=== PATIENT | female | born 1980 | race Caucasian/White ===

== ENCOUNTER → 2016-12-01 | Outpatient (CLI) | payer BC ==
[~2016-12-01] MED LIST: ADV100INH INH; ALBU17IN INH
--- NOTE | 2016-12-01 16:20 | REP ---
Clinical: Pelvic pain. Technique: Transabdominal pelvic ultrasound followed by transvaginal examination for better evaluation of the endometrium and adnexa with color Doppler evaluation of the ovaries. Findings: Bladder is unremarkable and measures 12.0 x 5.7 x 8.1 cm. Retroverted bicornuate uterus measures 7.8 x 4.3 x 5.4 cm. The endometrial complex measures 5.1 mm (right) and 7.1 mm (left) thickness. No discrete uterine or endometrial abnormalities are appreciated. Subcentimeter Nabothian cysts. Bilateral ovaries are normal in appearance and vascularity without evidence for torsion. Right ovary measures 4.9 x 2.6 x 3.4 cm ; R I = 0.66. Left ovary measures 3.3 x 1.8 x 1.8 cm ; R I = 0.62. Trace pelvic free fluid is nonspecific. Impression: 1. Retroverted bicornuate uterus. 2. Trace pelvic free fluid. 3. Normal bilateral ovaries. Signed by Kehinde Wagoner MD 12/01/2016 04:12 P
== END ==
LOC: M SMT 14:59
PROVIDERS: ATTEND Physician Assistant
DX: R10.31 Right lower quadrant pain (principal)

== ENCOUNTER 2016-12-07 18:46 | Emergency (ER) | payer BC ==
[2016-12-07 20:33] LABS: BASO % 0.6 % (0.0-1.0); EOS # 0.2 K/mm3 (0.0-0.50); EOS % 2.6 % (0.0-3.0); LARGE UNSTAINED CELL # 0.1 K/mm3 (0.0-0.4); LARGE UNSTAINED CELL % 1.1 % (0.0-4.0); LYMPH # 1.3 K/mm3 (1.5-4.5); LYMPH % 16.6 % (24.0-44.0); MEAN CORPUSCULAR HEMOGLOBIN 30.4 pg (27.0-33.0); MEAN CORPUSCULAR VOLUME 89.6 fl (80.0-96.0); MONO # 0.5 K/mm3 (0.0-0.8); NEUTROPHILS # 5.5 K/mm3 (1.8-7.7); NEUTROPHILS % 73.2 % (36.0-66.0); PLATELET COUNT, AUTOMATED 258 k/mm3 (150-450); RED CELL DISTRIBUTION WIDTH 12.3 % (11.5-14.5); WHITE BLOOD COUNT 7.5 K/mm3 (4.0-10.0)
[2016-12-07 20:44] LABS: ALBUMIN 4.1 GM/DL (3.2-5.2); ALBUMIN/GLOBULIN RATIO 1.05 (1.00-1.93); ALKALINE PHOSPHATASE 58 U/L (45-117); ALT/SGPT 16 U/L (12-78); AMYLASE 50 U/L (25-115); ANION GAP 7 MEQ/L (8-16); AST/SGOT 11 U/L (15-37); BILIRUBIN,DIRECT 0.2 MG/DL (0.0-0.2); BILIRUBIN,TOTAL 0.6 MG/DL (0.2-1.0); BLOOD UREA NITROGEN 6 MG/DL (7-18); CALCIUM LEVEL 8.6 MG/DL (8.5-10.1); CARBON DIOXIDE LEVEL 30 MEQ/L (21-32); CHLORIDE LEVEL 105 MEQ/L (98-107); CREATININE FOR GFR 0.81 MG/DL (0.55-1.02); GLOMERULAR FILTRATION RATE > 60.0 (>60); GLUCOSE, FASTING 100 MG/DL (70-105); POTASSIUM SERUM 3.9 MEQ/L (3.5-5.1); SODIUM LEVEL 142 MEQ/L (136-145)
--- NOTE | 2016-12-07 21:50 | EDDOCDS ---
Physician Documentation [facility] Name: Kimber Chung Age: 36 yrs Sex: Female : 1980 Arrival Date: 12/07/2016 Time: 18:46 Bed PD Private MD: Sofie Olsen Disposition: 12/07/16 21:25 Discharged to Home/Self Care. Impression: Acute gastritis. - Condition is Stable. - Discharge Instructions: Gastritis, Adult. - Prescriptions for Carafate 1 gram Oral Tablet - take 1 tablet by ORAL route 4 times per day take on an empty stomach, beginning on waking and last dose at bedtime; 20 tablet. Prilosec 20 mg Oral Capsule, Delayed Release(E.C.) - take 1 capsule by ORAL route once daily; 14 capsule. ZOFRAN ODT 4 mg Oral - dissolve 1 tablet by ORAL route every 8 hours As needed do not chew, do not swallow whole; 10 tablet. - Medication Reconciliation, Local Pharmacy Hours form. - Follow up: Sofie Olsen MD; When: 1 week; Reason: Recheck today's complaints, Continuance of care. Follow up: Emergency Department; When: As needed; Reason: Fever > 102F, Worsening of conditions, signs of bleeding, severe pain. - Problem is new. - Symptoms have improved. Historical: - Allergies: Bactrim (Hives); Levaquin (passed out); - Home Meds: 1. DOK 100 mg oral cap 1 cap once daily - PMHx: Asthma; - PSHx: ; Cholecystectomy; - Social history: Smoking status: Patient states was never smoker of tobacco. No barriers to communication noted, The patient speaks fluent [place], Speaks appropriately for age. - Family history: Not pertinent. - : The pt / caregiver states he / she is not on anticoagulants. Home medication list is obtained from the patient. - Exposure Risk Screening:: None identified. 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 5 in. (165.10 cm) (R); Pain 5/10; 19:31 Resp 20; sls1 19:37 BP 141 / 82; cjh 21:05 BP 159 / 95; Pulse 119; Resp 16; Temp 99.5(O); Pulse Ox 100% on R/A; Pain 5/10; sew 21:49 BP 150 / 87; Pulse 101; Resp 18 S; Temp 98.8(O); Pulse Ox 99% on R/A; af2 18:48 Body Mass Index 32.78 (89.36 kg, 165.10 cm) gr2 MDM: 19:00 Vital Signs ordered. dt4 19:55 KUB Ordered. EDMS 19:55 Amylase Ordered. EDMS 19:55 Basic Metabolic Profile Ordered. EDMS 19:55 CBC with Diff Ordered. EDMS 19:55 Lipase Ordered. EDMS 19:55 Liver Profile Ordered. EDMS 19:56 UA Ordered. EDMS 19:56 NOTHING BY MOUTH+DIET ordered. EDMS 21:21 Basic Metabolic Profile Reviewed. ar2 21:21 CBC with Diff Reviewed. ar2 21:21 Liver Profile Reviewed. ar2 21:21 UA Reviewed. ar2 21:21 Amylase Reviewed. ar2 21:21 Lipase Reviewed. ar2 21:22 Urine Culture Ordered. EDMS 21:36 Financial registration complete. [facility] Signatures: Dispatcher [employer] Amie Elizabeth, RN Boston Robb PA-C PA-C ar2 Marie Lo RN RN sls1 Marti Mora PA-C PA-Evette dt4 Samantha Vela [facility] Enriqueta BaileyRN RN af2 MTDD
--- NOTE | 2016-12-07 21:50 | EDDOCDS ---
Nurse's Notes [facility] Name: Kimber Chung Age: 36 yrs Sex: Female : 1980 Arrival Date: 12/07/2016 Time: 18:46 Bed PD Private MD: Sofie Olsen Diagnosis: Acute gastritis Presentation: 12/07 18:51 Presenting complaint: Patient states: upper mid abd pain for 2 weeks. it moves all srm over. went to PMD and had U/S and it was normal. pt on stool softeners. pain not getting any better. feels like she has to urinate and defecate all the time. soft formed stool. decreased appetite. no abnormal vag bleeding. Risk factors: the patient reports no vaginal bleeding. Adult Sepsis Screening: The patient does not have new or worsening altered mentation. Patient's respiratory rate is less than 22. Systolic blood pressure is greater than 100. Patient has a qSOFA score of 0- Negative Sepsis Screen. Suicide/Homicide risk assessment- the patient denies having any suicidal and/or homicidal ideations and does not present with any other emotional, behavioral or mental health complaints. Status: Patient is not a special services director or dependent. Transition of care: patient was not received from another setting of care. 18:51 Acuity: SAROJ Level 3 srm 18:51 Method Of Arrival: Walkin/Carried/Asstd srm Triage Assessment: 18:55 General: Appears in no apparent distress, Behavior is appropriate for age, cooperative. srm Pain: Pain currently is 5 out of 10 on a pain scale. At worst was 9 out of 10 on a pain scale. HIV screening NA for this visit Offered previously. GI: Reports upper abd pain. 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 DOK 100 mg oral cap 1 cap once daily - PMHx: Asthma; - PSHx: ; Cholecystectomy; - Social history: Smoking status: Patient states was never smoker of tobacco. No barriers to communication noted, The patient speaks fluent Polish, Speaks appropriately for age. - Family history: Not pertinent. - : The pt / caregiver states he / she is not on anticoagulants. Home medication list is obtained from the patient. - Exposure Risk Screening:: None identified. Screenin:08 Screening information is obtained from the patient. Fall risk: No risks identified. af2 Assistance ADL's: requires no assistance with activities of daily living. Abuse/DV Screen: The patient / caregiver reports he/she is: not in a situation that causes fear, pain or injury. Nutritional screening: No deficits noted. Advance Directives: Currently, there is no health care proxy. home support is adequate. Assessment: 19:31 General: Appears in no apparent distress, Behavior is appropriate for age, cooperative, sls1 Pt reports right upper quadrant abdominal pain times two weeks, reports pain after eating, with decreased appetite, has been seen by pcp, had ultra sound and treated for constipation. Pt reports pain is continuing, mostly epigastric region, reports still feels like she has to have bowel movement but unable to go. Denies urinary symptoms. Reports felt like a "ball" near rectum.. Neurological: Level of Consciousness is awake, alert, Oriented to person, place, time. Respiratory: Airway is patent Respiratory effort is even, unlabored, Respiratory pattern is regular, symmetrical. GI: Abdomen is non- distended obese, Bowel sounds present X 4 quads. Abd is soft X 4 quads. Derm: No deficits noted. 21:08 General: Appears in no apparent distress, Behavior is appropriate for age, cooperative. af2 Neurological: Level of Consciousness is awake, alert, Oriented to person, place, time. Respiratory: Airway is patent Respiratory effort is even, unlabored, Respiratory pattern is regular, symmetrical. Derm: Skin is pink, warm & dry. Vital Signs: 18:48 BP 161 / 88; Pulse 115; Resp 10 S; Temp 99.3(O); Pulse Ox 100% on R/A; Weight 89.36 kg gr2 (R); Height 5 ft. 5 in. (165.10 cm) (R); Pain 5/10; 19:31 Resp 20; sls1 19:37 BP 141 / 82; cjh 21:05 BP 159 / 95; Pulse 119; Resp 16; Temp 99.5(O); Pulse Ox 100% on R/A; Pain 5/10; sew 21:49 BP 150 / 87; Pulse 101; Resp 18 S; Temp 98.8(O); Pulse Ox 99% on R/A; af2 18:48 Body Mass Index 32.78 (89.36 kg, 165.10 cm) gr2 Vitals: 18:48 Log In Time: December 07, 2016 at 18:48. gr2 ED Course: 18:47 Patient visited by Shon Chan. gr2 18:47 Sofie Olsen MD is Private Physician. gr2 18:47 Patient moved to Waiting gr2 18:48 Patient visited by Shon Chan. gr2 18:48 Patient moved to Pre RCE gr2 18:54 Triage Initiated srm 19:28 Patient moved to Triage 3 sls1 19:33 Patient visited by Marie Lo RN. sls1 19:38 Boston Corrigan PA-C is PHCP. ar2 19:38 Syed Lopez DO is Attending Physician. ar2 19:38 Patient visited by Boston Corrigan PA-C. ar2 20:07 Patient moved to TR2 sls1 20:09 Patient moved to Radiology indra 20:59 Patient moved to PD / sls1 21:05 Patient visited by Enriqueta Bailey RN. af2 21:06 Patient visited by Rochelle Jason. sew 21:08 The patient / caregiver is instructed regarding the plan of care and ED course. Patient af2 has correct armband on for positive identification. 21:09 Patient visited by Enriqueta Bailey RN. af2 21:25 Sofie Olsen MD is Referral Physician. ar2 21:28 Urine Culture Sent. sls1 21:49 No IV's were initiated during this patient's visit. No procedures done that require af2 assistance. Order Results: Lab Order: Amylase; SPEC'M 12/07/16 20:05 Test: AMYLASE; Value: 50; Range: 25-115; Units: U/L; Status: F Lab Order: Basic Metabolic Profile; SPEC'M 12/07/16 20:05 Test: GLUCOSE, FASTING; Value: 100; Range: 70-105; Units: MG/DL; Status: F Test: BLOOD UREA NITROGEN; Value: 6; Range: 7-18; Abnormal: Below low normal; Units: MG/DL; Status: F Test: CREATININE FOR GFR; Value: 0.81; Range: 0.55-1.02; Units: MG/DL; Status: F Test: GLOMERULAR FILTRATION RATE; Value: > 60.0; Range: >60; Status: F Test: SODIUM LEVEL; Value: 142; Range: 136-145; Units: MEQ/L; Status: F Test: POTASSIUM SERUM; Value: 3.9; Range: 3.5-5.1; Units: MEQ/L; Status: F Test: CHLORIDE LEVEL; Value: 105; Range: 98-107; Units: MEQ/L; Status: F Test: CARBON DIOXIDE LEVEL; Value: 30; Range: 21-32; Units: MEQ/L; Status: F Test: ANION GAP; Value: 7; Range: 8-16; Abnormal: Below low normal; Units: MEQ/L; Status: F Test: CALCIUM LEVEL; Value: 8.6; Range: 8.5-10.1; Units: MG/DL; Status: F Test Note: ; Units are mL/min/1.73 m2 Chronic Kidney Disease Staging per NKF: Stage I & II GFR >=60 Normal to Mildly Decreased Stage III GFR 30-59 Moderately Decreased Stage IV GFR 15-29 Severely Decreased Stage V GFR <15 Very Little GFR Left ESRD GFR <15 on BLUE CRABBER Lab Order: CBC with Diff; SPEC'M 12/07/16 20:05 Test: WHITE BLOOD COUNT; Value: 7.5; Range: 4.0-10.0; Units: K/mm3; Status: F Test: RED BLOOD COUNT; Value: 4.90; Range: 4.00-5.40; Units: M/mm3; Status: F Test: HEMOGLOBIN; Value: 14.9; Range: 12.0-16.0; Units: g/dl; Status: F Test: HEMATOCRIT; Value: 43.9; Range: 36.0-47.0; Units: %; Status: F Test: MEAN CORPUSCULAR VOLUME; Value: 89.6; Range: 80.0-96.0; Units: fl; Status: F Test: MEAN CORPUSCULAR HEMOGLOBIN; Value: 30.4; Range: 27.0-33.0; Units: pg; Status: F Test: MEAN CORPUSCULAR HGB CONC; Value: 34.0; Range: 32.0-36.5; Units: g/dl; Status: F Test: RED CELL DISTRIBUTION WIDTH; Value: 12.3; Range: 11.5-14.5; Units: %; Status: F Test: PLATELET COUNT, AUTOMATED; Value: 258; Range: 150-450; Units: k/mm3; Status: F Test: NEUTROPHILS %; Value: 73.2; Range: 36.0-66.0; Abnormal: Above high normal; Units: %; Status: F Test: LYMPH %; Value: 16.6; Range: 24.0-44.0; Abnormal: Below low normal; Units: %; Status: F Test: MONO %; Value: 6.0; Range: 0.0-5.0; Abnormal: Above high normal; Units: %; Status: F Test: EOS %; Value: 2.6; Range: 0.0-3.0; Units: %; Status: F Test: BASO %; Value: 0.6; Range: 0.0-1.0; Units: %; Status: F Test: LARGE UNSTAINED CELL %; Value: 1.1; Range: 0.0-4.0; Units: %; Status: F Test: NEUTROPHILS #; Value: 5.5; Range: 1.8-7.7; Units: K/mm3; Status: F Test: LYMPH #; Value: 1.3; Range: 1.5-4.5; Abnormal: Below low normal; Units: K/mm3; Status: F Test: MONO #; Value: 0.5; Range: 0.0-0.8; Units: K/mm3; Status: F Test: EOS #; Value: 0.2; Range: 0.0-0.50; Units: K/mm3; Status: F Test: BASO #; Value: 0.0; Range: 0.0-0.2; Units: K/mm3; Status: F Test: LARGE UNSTAINED CELL #; Value: 0.1; Range: 0.0-0.4; Units: K/mm3; Status: F Lab Order: Lipase; SPEC'M 12/07/16 20:05 Test: LIPASE; Value: 226; Range: 73-393; Units: U/L; Status: F Lab Order: Liver Profile; SPEC'M 12/07/16 20:05 Test: AST/SGOT; Value: 11; Range: 15-37; Abnormal: Below low normal; Units: U/L; Status: F Test: ALT/SGPT; Value: 16; Range: 12-78; Units: U/L; Status: F Test: ALKALINE PHOSPHATASE; Value: 58; Range: 45-117; Units: U/L; Status: F Test: BILIRUBIN,TOTAL; Value: 0.6; Range: 0.2-1.0; Units: MG/DL; Status: F Test: BILIRUBIN,DIRECT; Value: 0.2; Range: 0.0-0.2; Units: MG/DL; Status: F Test: TOTAL PROTEIN; Value: 8.0; Range: 6.4-8.2; Units: GM/DL; Status: F Test: ALBUMIN; Value: 4.1; Range: 3.2-5.2; Units: GM/DL; Status: F Test: ALBUMIN/GLOBULIN RATIO; Value: 1.05; Range: 1.00-1.93; Status: F Lab Order: UA; SPEC'M 12/07/16 20:05 Test: APPEARANCE, URINE; Value: CLEAR; Range: CLEAR; Status: F Test: COLOR, URINE; Value: STRAW; Range: YELLOW; Status: F Test: PH,URINE; Value: 7.0; Range: 5.0-9.0; Units: UNITS; Status: F Test: SPECIFIC GRAVITY URINE AUTO; Value: 1.004; Range: 1.002-1.035; Status: F Test: PROTEIN, URINE AUTO; Value: NEGATIVE; Range: NEGATIVE; Units: mg/dL; Status: F Test: GLUCOSE, URINE (UA) AUTO; Value: NEGATIVE; Range: NEGATIVE; Units: mg/dL; Status: F Test: KETONE, URINE AUTO; Value: NEGATIVE; Range: NEGATIVE; Units: mg/dL; Status: F Test: UROBILINOGEN, URINE AUTO; Value: 0.2; Range: 0.0-2.0; Units: mg/dL; Status: F Test: BILIRUBIN, URINE AUTO; Value: NEGATIVE; Range: NEGATIVE; Status: F Test: NITRITE, URINE AUTO; Value: NEGATIVE; Range: NEGATIVE; Status: F Test: LEUKOCYTE ESTERASE, URINE AUTO; Value: NEGATIVE; Range: NEGATIVE; Status: F Test: BLOOD, URINE BLOOD; Value: NEGATIVE; Range: NEGATIVE; Status: F Test: WBC, URINE AUTO; Value: 0; Range: 0-3; Units: /HPF; Status: F Test: RBC, URINE AUTO; Value: 1; Range: 0-3; Units: /HPF; Status: F Test: BACTERIA, URINE AUTO; Value: 1+; Range: NEGATIVE; Abnormal: Above high normal; Status: F Test: SQUAMOUS EPITHELIAL CELL UR AU; Value: 0; Range: 0-6; Units: /HPF; Status: F Test: HYALINE CAST, URINE AUTO; Value: 0; Range: 0-1; Units: /LPF; Status: F Outcome: 21:25 Discharge ordered by Provider. ar2 21:48 Discharge Assessment: Patient awake, alert and oriented x 3. No cognitive and/or af2 functional deficits noted. Patient verbalized understanding of disposition instructions. patient administered narcotics - no. The following High Risk Discharge criteria are identified: None. Discharged to home ambulatory. Condition: stable. Discharge instructions given to patient, Instructed on discharge instructions, follow up and referral plans. medication usage, Demonstrated understanding of instructions, medications, Pt was receptive of discharge instructions/ teaching. No special radiology studies were completed. Property :Personal belongings accompany Pt. 21:49 Patient left the ED. af2 Signatures: Amie Cooper, RN RN Cj Mckoy Aaron, PA-C PA-C ar2 Marie Lo RN RN sls1 Tana Sousa RN RN cjh Wallace, Sarah sew Raymond, Gainslee gr2 Enriqueta BaileyRN RN af2 MTDD
--- NOTE | 2016-12-09 22:50 | EDDOCDS ---
Nurse's Notes [facility] Name: Kimber Elam Age: 36 yrs Sex: Female : 1980 Arrival Date: 12/07/2016 Time: 18:46 Bed PD Private MD: Sofie Olsen Diagnosis: Acute gastritis Presentation: 12/07 18:51 Presenting complaint: Patient states: upper mid abd pain for 2 weeks. it moves all srm over. went to PMD and had U/S and it was normal. pt on stool softeners. pain not getting any better. feels like she has to urinate and defecate all the time. soft formed stool. decreased appetite. no abnormal vag bleeding. Risk factors: the patient reports no vaginal bleeding. Adult Sepsis Screening: The patient does not have new or worsening altered mentation. Patient's respiratory rate is less than 22. Systolic blood pressure is greater than 100. Patient has a qSOFA score of 0- Negative Sepsis Screen. Suicide/Homicide risk assessment- the patient denies having any suicidal and/or homicidal ideations and does not present with any other emotional, behavioral or mental health complaints. Status: Patient is not a food service technician or dependent. Transition of care: patient was not received from another setting of care. 18:51 Acuity: SAROJ Level 3 srm 18:51 Method Of Arrival: Walkin/Carried/Asstd srm Triage Assessment: 18:55 General: Appears in no apparent distress, Behavior is appropriate for age, cooperative. srm Pain: Pain currently is 5 out of 10 on a pain scale. At worst was 9 out of 10 on a pain scale. HIV screening NA for this visit Offered previously. GI: Reports upper abd pain. MANAGER ENT: 18:55 LMP 11/24/2016 srm Historical: - Allergies: Bactrim (Hives); Levaquin (passed out); - Home Meds: 1. DOK 100 mg oral cap 1 cap once daily - PMHx: Asthma; - PSHx: ; Cholecystectomy; - Social history: Smoking status: Patient states was never smoker of tobacco. No barriers to communication noted, The patient speaks fluent Ugandan, Speaks appropriately for age. - Family history: Not pertinent. - : The pt / caregiver states he / she is not on anticoagulants. Home medication list is obtained from the patient. - Exposure Risk Screening:: None identified. Screenin:08 Screening information is obtained from the patient. Fall risk: No risks identified. af2 Assistance ADL's: requires no assistance with activities of daily living. Abuse/DV Screen: The patient / caregiver reports he/she is: not in a situation that causes fear, pain or injury. Nutritional screening: No deficits noted. Advance Directives: Currently, there is no health care proxy. home support is adequate. Assessment: 19:31 General: Appears in no apparent distress, Behavior is appropriate for age, cooperative, sls1 Pt reports right upper quadrant abdominal pain times two weeks, reports pain after eating, with decreased appetite, has been seen by pcp, had ultra sound and treated for constipation. Pt reports pain is continuing, mostly epigastric region, reports still feels like she has to have bowel movement but unable to go. Denies urinary symptoms. Reports felt like a "ball" near rectum.. Neurological: Level of Consciousness is awake, alert, Oriented to person, place, time. Respiratory: Airway is patent Respiratory effort is even, unlabored, Respiratory pattern is regular, symmetrical. GI: Abdomen is non- distended obese, Bowel sounds present X 4 quads. Abd is soft X 4 quads. Derm: No deficits noted. 21:08 General: Appears in no apparent distress, Behavior is appropriate for age, cooperative. af2 Neurological: Level of Consciousness is awake, alert, Oriented to person, place, time. Respiratory: Airway is patent Respiratory effort is even, unlabored, Respiratory pattern is regular, symmetrical. Derm: Skin is pink, warm & dry. Vital Signs: 18:48 BP 161 / 88; Pulse 115; Resp 10 S; Temp 99.3(O); Pulse Ox 100% on R/A; Weight 89.36 kg gr2 (R); Height 5 ft. 5 in. (165.10 cm) (R); Pain 5/10; 19:31 Resp 20; sls1 19:37 BP 141 / 82; cjh 21:05 BP 159 / 95; Pulse 119; Resp 16; Temp 99.5(O); Pulse Ox 100% on R/A; Pain 5/10; sew 21:49 BP 150 / 87; Pulse 101; Resp 18 S; Temp 98.8(O); Pulse Ox 99% on R/A; af2 18:48 Body Mass Index 32.78 (89.36 kg, 165.10 cm) gr2 Vitals: 18:48 Log In Time: December 07, 2016 at 18:48. gr2 ED Course: 18:47 Patient visited by Shon Chan. gr2 18:47 Sofie Olsen MD is Private Physician. gr2 18:47 Patient moved to Waiting gr2 18:48 Patient visited by Shon Chan. gr2 18:48 Patient moved to Pre RCE gr2 18:54 Triage Initiated srm 19:28 Patient moved to Triage 3 sls1 19:33 Patient visited by Marie Lo, TESSIE. sls1 19:38 [place] Corrigan PA-C is PHCP. ar2 19:38 Syed Lopez DO is Attending Physician. ar2 19:38 Patient visited by [place] Corrigan PA-C. ar2 20:07 Patient moved to TR2 sls1 20:09 Patient moved to Radiology indra 20:59 Patient moved to PD sls1 21:05 Patient visited by Enriqueta Bailey RN. af2 21:06 Patient visited by Rochelle Jason. sew 21:08 The patient / caregiver is instructed regarding the plan of care and ED course. Patient af2 has correct armband on for positive identification. 21:09 Patient visited by Enriqueta Bailey RN. af2 21:25 Sofie Olsen MD is Referral Physician. ar2 21:28 Urine Culture Sent. sls1 21:49 No IV's were initiated during this patient's visit. No procedures done that require af2 assistance. 22:36 Patient name changed from Kimber\\S\\\\S\\Cris-Marialuisa\\S\\ to Kimber\\S\\M\\S\\Cris-Marialuisa. EDMS 22:37 [facility] Payment Agreement was scanned into [employer] and attached to record. [facility] 23:38 Patient name changed from Kimber\\S\\M\\S\\Cris-Marialuisa\\S\\ to Kimber\\S\\M\\S\\Cris Marialuisa. EDMS 12/08 11:55 T-Sheet-- Draft Copy was scanned into [employer] and attached to record. gb 11:55 Radiology Report was scanned into [employer] and attached to record. gb Order Results: Lab Order: Amylase; SPEC'M 12/07/16 20:05 Test: AMYLASE; Value: 50; Range: 25-115; Units: U/L; Status: F Lab Order: Basic Metabolic Profile; 12/07/16 20:05 Test: GLUCOSE, FASTING; Value: 100; Range: 70-105; Units: MG/DL; Status: F Test: BLOOD UREA NITROGEN; Value: 6; Range: 7-18; Abnormal: Below low normal; Units: MG/DL; Status: F Test: CREATININE FOR GFR; Value: 0.81; Range: 0.55-1.02; Units: MG/DL; Status: F Test: GLOMERULAR FILTRATION RATE; Value: > 60.0; Range: >60; Status: F Test: SODIUM LEVEL; Value: 142; Range: 136-145; Units: MEQ/L; Status: F Test: POTASSIUM SERUM; Value: 3.9; Range: 3.5-5.1; Units: MEQ/L; Status: F Test: CHLORIDE LEVEL; Value: 105; Range: 98-107; Units: MEQ/L; Status: F Test: CARBON DIOXIDE LEVEL; Value: 30; Range: 21-32; Units: MEQ/L; Status: F Test: ANION GAP; Value: 7; Range: 8-16; Abnormal: Below low normal; Units: MEQ/L; Status: F Test: CALCIUM LEVEL; Value: 8.6; Range: 8.5-10.1; Units: MG/DL; Status: F Test Note: ; Units are mL/min/1.73 m2 Chronic Kidney Disease Staging per NKF: Stage I & II GFR >=60 Normal to Mildly Decreased Stage III GFR 30-59 Moderately Decreased Stage IV GFR 15-29 Severely Decreased Stage V GFR <15 Very Little GFR Left ESRD GFR <15 on HVAC SERVICES PROFESSIONAL Lab Order: CBC with Diff; 12/07/16 20:05 Test: WHITE BLOOD COUNT; Value: 7.5; Range: 4.0-10.0; Units: K/mm3; Status: F Test: RED BLOOD COUNT; Value: 4.90; Range: 4.00-5.40; Units: M/mm3; Status: F Test: HEMOGLOBIN; Value: 14.9; Range: 12.0-16.0; Units: g/dl; Status: F Test: HEMATOCRIT; Value: 43.9; Range: 36.0-47.0; Units: %; Status: F Test: MEAN CORPUSCULAR VOLUME; Value: 89.6; Range: 80.0-96.0; Units: fl; Status: F Test: MEAN CORPUSCULAR HEMOGLOBIN; Value: 30.4; Range: 27.0-33.0; Units: pg; Status: F Test: MEAN CORPUSCULAR HGB CONC; Value: 34.0; Range: 32.0-36.5; Units: g/dl; Status: F Test: RED CELL DISTRIBUTION WIDTH; Value: 12.3; Range: 11.5-14.5; Units: %; Status: F Test: PLATELET COUNT, AUTOMATED; Value: 258; Range: 150-450; Units: k/mm3; Status: F Test: NEUTROPHILS %; Value: 73.2; Range: 36.0-66.0; Abnormal: Above high normal; Units: %; Status: F Test: LYMPH %; Value: 16.6; Range: 24.0-44.0; Abnormal: Below low normal; Units: %; Status: F Test: MONO %; Value: 6.0; Range: 0.0-5.0; Abnormal: Above high normal; Units: %; Status: F Test: EOS %; Value: 2.6; Range: 0.0-3.0; Units: %; Status: F Test: BASO %; Value: 0.6; Range: 0.0-1.0; Units: %; Status: F Test: LARGE UNSTAINED CELL %; Value: 1.1; Range: 0.0-4.0; Units: %; Status: F Test: NEUTROPHILS #; Value: 5.5; Range: 1.8-7.7; Units: K/mm3; Status: F Test: LYMPH #; Value: 1.3; Range: 1.5-4.5; Abnormal: Below low normal; Units: K/mm3; Status: F Test: MONO #; Value: 0.5; Range: 0.0-0.8; Units: K/mm3; Status: F Test: EOS #; Value: 0.2; Range: 0.0-0.50; Units: K/mm3; Status: F Test: BASO #; Value: 0.0; Range: 0.0-0.2; Units: K/mm3; Status: F Test: LARGE UNSTAINED CELL #; Value: 0.1; Range: 0.0-0.4; Units: K/mm3; Status: F Lab Order: Lipase; [facility] 12/07/16 20:05 Test: LIPASE; Value: 226; Range: 73-393; Units: U/L; Status: F Lab Order: Liver Profile; [facility] 12/07/16 20:05 Test: AST/SGOT; Value: 11; Range: 15-37; Abnormal: Below low normal; Units: U/L; Status: F Test: ALT/SGPT; Value: 16; Range: 12-78; Units: U/L; Status: F Test: ALKALINE PHOSPHATASE; Value: 58; Range: 45-117; Units: U/L; Status: F Test: BILIRUBIN,TOTAL; Value: 0.6; Range: 0.2-1.0; Units: MG/DL; Status: F Test: BILIRUBIN,DIRECT; Value: 0.2; Range: 0.0-0.2; Units: MG/DL; Status: F Test: TOTAL PROTEIN; Value: 8.0; Range: 6.4-8.2; Units: GM/DL; Status: F Test: ALBUMIN; Value: 4.1; Range: 3.2-5.2; Units: GM/DL; Status: F Test: ALBUMIN/GLOBULIN RATIO; Value: 1.05; Range: 1.00-1.93; Status: F Lab Order: UA; [facility] 12/07/16 20:05 Test: APPEARANCE, URINE; Value: CLEAR; Range: CLEAR; Status: F Test: COLOR, URINE; Value: STRAW; Range: YELLOW; Status: F Test: PH,URINE; Value: 7.0; Range: 5.0-9.0; Units: UNITS; Status: F Test: SPECIFIC GRAVITY URINE AUTO; Value: 1.004; Range: 1.002-1.035; Status: F Test: PROTEIN, URINE AUTO; Value: NEGATIVE; Range: NEGATIVE; Units: mg/dL; Status: F Test: GLUCOSE, URINE (UA) AUTO; Value: NEGATIVE; Range: NEGATIVE; Units: mg/dL; Status: F Test: KETONE, URINE AUTO; Value: NEGATIVE; Range: NEGATIVE; Units: mg/dL; Status: F Test: UROBILINOGEN, URINE AUTO; Value: 0.2; Range: 0.0-2.0; Units: mg/dL; Status: F Test: BILIRUBIN, URINE AUTO; Value: NEGATIVE; Range: NEGATIVE; Status: F Test: NITRITE, URINE AUTO; Value: NEGATIVE; Range: NEGATIVE; Status: F Test: LEUKOCYTE ESTERASE, URINE AUTO; Value: NEGATIVE; Range: NEGATIVE; Status: F Test: BLOOD, URINE BLOOD; Value: NEGATIVE; Range: NEGATIVE; Status: F Test: WBC, URINE AUTO; Value: 0; Range: 0-3; Units: /HPF; Status: F Test: RBC, URINE AUTO; Value: 1; Range: 0-3; Units: /HPF; Status: F Test: BACTERIA, URINE AUTO; Value: 1+; Range: NEGATIVE; Abnormal: Above high normal; Status: F Test: SQUAMOUS EPITHELIAL CELL UR AU; Value: 0; Range: 0-6; Units: /HPF; Status: F Test: HYALINE CAST, URINE AUTO; Value: 0; Range: 0-1; Units: /LPF; Status: F Lab Order: Urine Culture; SPEC'M 12/07/16 20:05 Test: URINE CULTURE; Value: <EXTERNAL COMMENT eCWMed> FULL REPORT IN LAB NOTES (eCW and Medent).; Status: F Test: URINE CULTURE; Value: URINE CULTURE RESULT SPECIMEN APPEARS CONTAMINATED; Status: F Outcome: 12/07 21:25 Discharge ordered by Provider. ar2 21:48 Discharge Assessment: Patient awake, alert and oriented x 3. No cognitive and/or af2 functional deficits noted. Patient verbalized understanding of disposition instructions. patient administered narcotics - no. The following High Risk Discharge criteria are identified: None. Discharged to home ambulatory. Condition: stable. Discharge instructions given to patient, Instructed on discharge instructions, follow up and referral plans. medication usage, Demonstrated understanding of instructions, medications, Pt was receptive of discharge instructions/ teaching. No special radiology studies were completed. Property :Personal belongings accompany Pt. 21:49 Patient left the ED. af2 Signatures: Dispatcher [employer] EDMS Amie Cooper RN RN srm Bartlett, Floyd fab Barnhardt, Gloria, Dylan Corrigan, [place], BARON PAJustoC ar2 Marie Lo, RN RN sls1 Tana Sousa,RN RN emeliah Eren, Shon [place]2 Samantha Vela Amber,RN RN af2 Chart Complete MTDD
--- NOTE | 2016-12-09 22:50 | EDDOCDS ---
Physician Documentation [facility] Name: Kimber Elam Age: 36 yrs Sex: Female : 1980 Arrival Date: 12/07/2016 Time: 18:46 Bed PD Private MD: Sofie Olsen Disposition: 12/07/16 21:25 Discharged to Home/Self Care. Impression: Acute gastritis. - Condition is Stable. - Discharge Instructions: Gastritis, Adult. - Prescriptions for Carafate 1 gram Oral Tablet - take 1 tablet by ORAL route 4 times per day take on an empty stomach, beginning on waking and last dose at bedtime; 20 tablet. Prilosec 20 mg Oral Capsule, Delayed Release(E.C.) - take 1 capsule by ORAL route once daily; 14 capsule. ZOFRAN ODT 4 mg Oral - dissolve 1 tablet by ORAL route every 8 hours As needed do not chew, do not swallow whole; 10 tablet. - Medication Reconciliation, Local Pharmacy Hours form. - Follow up: Sofie Olsen MD; When: 1 week; Reason: Recheck today's complaints, Continuance of care. Follow up: Emergency Department; When: As needed; Reason: Fever > 102F, Worsening of conditions, signs of bleeding, severe pain. - Problem is new. - Symptoms have improved. Historical: - Allergies: Bactrim (Hives); Levaquin (passed out); - Home Meds: 1. DOK 100 mg oral cap 1 cap once daily - PMHx: Asthma; - PSHx: ; Cholecystectomy; - Social history: Smoking status: Patient states was never smoker of tobacco. No barriers to communication noted, The patient speaks fluent Namibian, Speaks appropriately for age. - Family history: Not pertinent. - : The pt / caregiver states he / she is not on anticoagulants. Home medication list is obtained from the patient. - Exposure Risk Screening:: None identified. 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 5 in. (165.10 cm) (R); Pain 5/10; 19:31 Resp 20; sls1 19:37 BP 141 / 82; cjh 21:05 BP 159 / 95; Pulse 119; Resp 16; Temp 99.5(O); Pulse Ox 100% on R/A; Pain 5/10; sew 21:49 BP 150 / 87; Pulse 101; Resp 18 S; Temp 98.8(O); Pulse Ox 99% on R/A; af2 18:48 Body Mass Index 32.78 (89.36 kg, 165.10 cm) gr2 MDM: 19:00 Vital Signs ordered. dt4 19:55 KUB Ordered. EDMS 19:55 Amylase Ordered. EDMS 19:55 Basic Metabolic Profile Ordered. EDMS 19:55 CBC with Diff Ordered. EDMS 19:55 Lipase Ordered. EDMS 19:55 Liver Profile Ordered. EDMS 19:56 UA Ordered. EDMS 19:56 NOTHING BY MOUTH+DIET ordered. EDMS 21:21 Basic Metabolic Profile Reviewed. ar2 21:21 CBC with Diff Reviewed. ar2 21:21 Liver Profile Reviewed. ar2 21:21 UA Reviewed. ar2 21:21 Amylase Reviewed. ar2 21:21 Lipase Reviewed. ar2 21:22 Urine Culture Ordered. EDMS 21:36 Financial registration complete. [facility] :37 [facility] Payment Agreement was scanned into [employer] and attached to record. [facility] 12/08 11:55 T-Sheet-- Draft Copy was scanned into [employer] and attached to record. 11:55 Radiology Report was scanned into [employer] and attached to record. gb Signatures: Dispatcher [employer] EDMS Amie Cooper, TESSIE KURTZ [facility] Jazlyn Hernandez, Reg Reg [place] Corrigan, RAJIV-C PAJustoC ar2 Marie Lo RN RN sls1 Marti Mora PA-C PAOnofre [email or web address] Samantha Vela [facility] Enriqueta BaileyRN RN af2 The chart was reviewed and I authenticate all verbal orders and agree with the evaluation and treatment provided.Attachments: 12/07 22:37 [facility] Payment Agreement [facility] 12/08 11:55 T-Sheet-- Draft Copy Chart Complete MTDD
--- NOTE | 2016-12-09 22:50 | EDDOCDS ---
Physician Documentation [facility] Name: Kimber Elam Age: 36 yrs Sex: Female : 1980 Arrival Date: 12/07/2016 Time: 18:46 Bed PD Private MD: Sofie Olsen Disposition: 12/07/16 21:25 Discharged to Home/Self Care. Impression: Acute gastritis. - Condition is Stable. - Discharge Instructions: Gastritis, Adult. - Prescriptions for Carafate 1 gram Oral Tablet - take 1 tablet by ORAL route 4 times per day take on an empty stomach, beginning on waking and last dose at bedtime; 20 tablet. Prilosec 20 mg Oral Capsule, Delayed Release(E.C.) - take 1 capsule by ORAL route once daily; 14 capsule. ZOFRAN ODT 4 mg Oral - dissolve 1 tablet by ORAL route every 8 hours As needed do not chew, do not swallow whole; 10 tablet. - Medication Reconciliation, Local Pharmacy Hours form. - Follow up: Sofie Olsen MD; When: 1 week; Reason: Recheck today's complaints, Continuance of care. Follow up: Emergency Department; When: As needed; Reason: Fever > 102F, Worsening of conditions, signs of bleeding, severe pain. - Problem is new. - Symptoms have improved. Historical: - Allergies: Bactrim (Hives); Levaquin (passed out); - Home Meds: 1. DOK 100 mg oral cap 1 cap once daily - PMHx: Asthma; - PSHx: ; Cholecystectomy; - Social history: Smoking status: Patient states was never smoker of tobacco. No barriers to communication noted, The patient speaks fluent Guinean, Speaks appropriately for age. - Family history: Not pertinent. - : The pt / caregiver states he / she is not on anticoagulants. Home medication list is obtained from the patient. - Exposure Risk Screening:: None identified. 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 5 in. (165.10 cm) (R); Pain 5/10; 19:31 Resp 20; sls1 19:37 BP 141 / 82; cjh 21:05 BP 159 / 95; Pulse 119; Resp 16; Temp 99.5(O); Pulse Ox 100% on R/A; Pain 5/10; sew 21:49 BP 150 / 87; Pulse 101; Resp 18 S; Temp 98.8(O); Pulse Ox 99% on R/A; af2 18:48 Body Mass Index 32.78 (89.36 kg, 165.10 cm) gr2 MDM: 19:00 Vital Signs ordered. dt4 19:55 KUB Ordered. EDMS 19:55 Amylase Ordered. EDMS 19:55 Basic Metabolic Profile Ordered. EDMS 19:55 CBC with Diff Ordered. EDMS 19:55 Lipase Ordered. EDMS 19:55 Liver Profile Ordered. EDMS 19:56 UA Ordered. EDMS 19:56 NOTHING BY MOUTH+DIET ordered. EDMS 21:21 Basic Metabolic Profile Reviewed. ar2 21:21 CBC with Diff Reviewed. ar2 21:21 Liver Profile Reviewed. ar2 21:21 UA Reviewed. ar2 21:21 Amylase Reviewed. ar2 21:21 Lipase Reviewed. ar2 21:22 Urine Culture Ordered. EDMS 21:36 Financial registration complete. [facility] :37 [facility] Payment Agreement was scanned into [employer] and attached to record. [facility] 12/08 11:55 T-Sheet-- Draft Copy was scanned into [employer] and attached to record. 11:55 Radiology Report was scanned into [employer] and attached to record. gb Signatures: Dispatcher [employer] EDMS Amie Cooper, TESSIE KURTZ [facility] Jazlyn Hernandez, Reg Reg [place] Corrigan, RAJIV-C PAJustoC ar2 Marie oL RN RN sls1 Marti Mora PA-C PAOnofre [email or web address] Samantha Vela [facility] Enriqueta BaileyRN RN af2 The chart was reviewed and I authenticate all verbal orders and agree with the evaluation and treatment provided.Attachments: 12/07 22:37 [facility] Payment Agreement [facility] 12/08 11:55 T-Sheet-- Draft Copy Chart Complete MTDD
--- NOTE | 2016-12-11 13:44 | REP ---
Clinical: Upper abdominal pain. Technique: Two supine views of the abdomen and pelvis. Comparison: 09/16/2010. Findings: Bowel gas pattern is nonspecific. Evidence for prior cholecystectomy. Two stable phleboliths in the left mike pelvis again noted. Skeletal structures intact. Impression: Nonspecific abdominal radiographs. Signed by Kehinde Wagoner MD 12/11/2016 01:36 P
== END 2016-12-07 21:49 | disposition home or self-care (01) ==
LOC: M ED 18:46
DX: K29.00 Acute gastritis without bleeding (principal); J45.909 Unspecified asthma, uncomplicated; Z79.899 Other long term (current) drug therapy; Z88.1 Allergy status to other antibiotic agents

== ENCOUNTER → 2016-12-17 | Outpatient (REF) | payer BC ==
[2016-12-17 13:03] LABS: FREE T4 1.34 NG/DL (0.76-1.46)
== END ==
LOC: M SFHCADAM 12:05
PROVIDERS: ATTEND Family Medicine
DX: F41.9 Anxiety disorder, unspecified (principal)

== ENCOUNTER 2017-03-31 19:46 | Emergency (ER) | payer BC, SELFPAY ==
[~2017-03-31] VITALS: Ht 165.1 cm; Wt 97.5 kg
--- NOTE | 2017-03-31 21:30 | REPUSA ---
Clinical history: Pain, swelling. Findings: The right common femoral, superficial femoral, popliteal, and other deep venous structures compress normally and demonstrate normal color Doppler flow. Normal venous waveforms with augmentatio n are seen. Impression: No evidence of deep vein thrombosis in the right femoral popliteal venous system.
[2017-03-31] MEDS ORDERED: IBUP600T26 PO (21:39)
[2017-03-31 21:52] VITALS: BP 139/84
== END 2017-03-31 21:56 | disposition home or self-care (01) ==
LOC: M ED 20:25
DX: S86.111A Strain of other muscle(s) and tendon(s) of posterior muscle group at lower leg level, right leg, initial encounter (principal); X58.XXXA Exposure to other specified factors, initial encounter; Y92.89 Other specified places as the place of occurrence of the external cause; Y93.89 Activity, other specified; Y99.8 Other external cause status; E11.9 Type 2 diabetes mellitus without complications; J45.909 Unspecified asthma, uncomplicated; Z88.0 Allergy status to penicillin; Z88.1 Allergy status to other antibiotic agents; Z88.2 Allergy status to sulfonamides; Z88.8 Allergy status to other drugs, medicaments and biological substances; Z91.040 Latex allergy status; L23.1 Allergic contact dermatitis due to adhesives; J30.9 Allergic rhinitis, unspecified

== ENCOUNTER → 2017-06-26 | Outpatient (CLI) | payer BC ==
[~2017-06-26] MED LIST changes: +IBUP-1022 PO
--- NOTE | 2017-06-26 11:12 | REP ---
Clinical: Trauma. Technique: AP, lateral, bilateral oblique and sunrise views. Findings: The osseous structures and joint spaces are intact and normal. There is no evidence for acute fracture or dislocation. No joint effusion is appreciated. Surrounding soft tissues are unremarkable. No subcutaneous emphysema or radiodense foreign body. Impression: Normal left knee examination. No acute fracture or dislocation. Signed by Kehinde Wagoner MD 06/26/2017 08:39 A
== END ==
LOC: M ADAMS 08:15
PROVIDERS: ATTEND Physician Assistant Medical
DX: M25.562 Pain in left knee (principal)

== ENCOUNTER 2017-09-24 23:57 | Emergency (ER) | payer BC ==
[~2017-09-24] VITALS: Ht 165.1 cm; Wt 104.5 kg
[2017-09-24 23:58] VITALS: BP 142/85
[2017-09-25] MEDS ORDERED: MACR100C43 PO (01:20)
[2017-09-25] MEDS ORDERED: NITROFURANTOIN (MACROBID) 100 MG CAP PO ONE (01:30)
[2017-09-25] MEDS ORDERED: PHENAZOPYRIDINE 100 MG TAB PO ONE (01:30)
== END 2017-09-25 01:34 | disposition home or self-care (01) ==
LOC: M ED 23:57
DX: N30.90 Cystitis, unspecified without hematuria (principal); E11.9 Type 2 diabetes mellitus without complications; Z88.1 Allergy status to other antibiotic agents; Z88.2 Allergy status to sulfonamides; J30.89 Other allergic rhinitis

== ENCOUNTER → 2017-12-08 | Outpatient (REF) | payer BC ==
[2017-12-08 15:00] LABS: HEMATOCRIT 46.5 % (36.0-47.0); HEMOGLOBIN 15.4 g/dl (12.0-16.0); MEAN CORPUSCULAR HGB CONC 33.1 g/dl (32.0-36.5); MEAN CORPUSCULAR VOLUME 90.5 fl (80.0-96.0); PLATELET COUNT, AUTOMATED 351 10^3/uL (150-450); RED BLOOD COUNT 5.14 10^6/uL (4.00-5.40); RED CELL DISTRIBUTION WIDTH 12.9 % (11.5-14.5); WHITE BLOOD COUNT 9.3 10^3/uL (4.0-10.0)
[2017-12-08 16:43] LABS: CHLAMYDIA DNA AMPLIFICATION NEGATIVE (NEGATIVE); GC DNA AMPLIFICATION NEGATIVE (NEGATIVE)
[2017-12-08 21:48] LABS: HCG, SERUM QUANTITATIVE 2834 MIU/ML
[2017-12-09 10:09] LABS: RUBELLA IgG QUALITATIVE IMMUNE (IMMUNE)
[2017-12-09 10:13] LABS: HBsAg Prenatal NEGATIVE (NEGATIVE)
[2017-12-09 10:38] LABS: HEPATITIS C VIRUS ABY INDEX 0.1 INDEX (<0.8)
[2017-12-09 10:39] LABS: HIV 1&2 SCREEN CENTAUR NEGATIVE (NEGATIVE)
== END ==
LOC: M LAB REF 13:05
DX: O36.80X0 Pregnancy with inconclusive fetal viability, not applicable or unspecified (principal)
CPT/HCPCS: 86762

== ENCOUNTER → 2017-12-17 | Outpatient (REF) | payer BC ==
[2017-12-17 18:15] LABS: HCG, SERUM QUANTITATIVE 14378 MIU/ML
== END ==
LOC: M LAB REF 17:02
DX: O36.80X0 Pregnancy with inconclusive fetal viability, not applicable or unspecified (principal); Z3A.00 Weeks of gestation of pregnancy not specified
CPT/HCPCS: 84702

== ENCOUNTER → 2017-12-25 | Outpatient (REF) | payer BC ==
[2017-12-25 15:06] LABS: HCG, SERUM QUANTITATIVE 24524 MIU/ML
== END ==
LOC: M LAB REF 14:21
DX: O36.80X0 Pregnancy with inconclusive fetal viability, not applicable or unspecified (principal); Z3A.00 Weeks of gestation of pregnancy not specified
CPT/HCPCS: 84702

== ENCOUNTER 2018-01-06 08:46 | Day surgery (SDC) | payer BC ==
[2018-01-06] MEDS ORDERED: LR 1,000 ML IV ×2 (09:00→11:30)
[2018-01-06 09:10] LABS: HEMOGLOBIN 14.4 g/dl (12.0-16.0); MEAN CORPUSCULAR HEMOGLOBIN 29.9 pg (27.0-33.0); MEAN CORPUSCULAR HGB CONC 33.5 g/dl (32.0-36.5); MEAN CORPUSCULAR VOLUME 89.4 fl (80.0-96.0); PLATELET COUNT, AUTOMATED 274 10^3/uL (150-450); RED BLOOD COUNT 4.81 10^6/uL (4.00-5.40); RED CELL DISTRIBUTION WIDTH 12.5 % (11.5-14.5); WHITE BLOOD COUNT 8.4 10^3/uL (4.0-10.0)
[2018-01-06] MEDS ORDERED: fentaNYL 250 MCG/5 ML INJECTION (J3010) As Ordered (09:59)
[2018-01-06] MEDS ORDERED: MIDAZOLAM INJ 2 MG/2 ML VIAL (J2250) As Ordered (10:00)
[2018-01-06] MEDS: LIDOCAINE 1% MDV INJ 50 ML VIAL As Ordered (10:14)
[2018-01-06] MEDS: LIDOCAINE 1% MDV 20ML VIAL As Ordered (10:15)
[2018-01-06] MEDS ORDERED: PROPOFOL 200 MG/20 ML VIAL As Ordered (10:21)
[2018-01-06 10:26] LABS: TYPE AND SCREEN 1 1
[2018-01-06] MEDS: ACETAMINOPHEN 650 MG SUPP As Ordered (10:37)
[2018-01-06] MEDS: LIDOCAINE W/EPINEPHRINE 1% 20ML VIAL As Ordered (10:39)
[2018-01-06] MEDS ORDERED: PERCOCET 5MG/325MG TAB PO (11:30)
[2018-01-06] MEDS ORDERED: ONDANSETRON 4MG/2ML VIAL (J2405) IV (11:30)
[2018-01-06] MEDS ORDERED: KETOROLAC 30 MG/ML VIAL (J1885) IV (11:30)
[2018-01-06] MEDS ORDERED: fentaNYL 100 MCG/2 ML INJECTION (J3010) IV (11:30)
== END 2018-01-06 12:21 | disposition home or self-care (01) ==
LOC: M SDC 08:46
PROVIDERS: Pediatrics
DX: O02.1 Missed abortion (principal); E66.9 Obesity, unspecified; J45.909 Unspecified asthma, uncomplicated
CPT/HCPCS: 59820

== ENCOUNTER 2018-01-08 22:25 | Observation (INO) | payer BC ==
[2018-01-09 01:52] LABS: APPEARANCE, URINE CLEAR (CLEAR); BACTERIA, URINE AUTO 1+ (NEGATIVE); BILIRUBIN, URINE AUTO NEGATIVE (NEGATIVE); BLOOD, URINE BLOOD 3+ (NEGATIVE); COLOR, URINE YELLOW (YELLOW); GLUCOSE, URINE (UA) AUTO NEGATIVE (NEGATIVE); KETONE, URINE AUTO NEGATIVE (NEGATIVE); LEUKOCYTE ESTERASE, URINE AUTO 1+ (NEGATIVE); MUCUS, URINE SMALL (NEGATIVE); NITRITE, URINE AUTO NEGATIVE (NEGATIVE); PROTEIN, URINE AUTO NEGATIVE (NEGATIVE); RBC, URINE AUTO 74 /HPF (0-3); SQUAMOUS EPITHELIAL CELL UR AU 2 /HPF (0-6); UROBILINOGEN, URINE AUTO 0.2 mg/dL (0.0-2.0); WBC, URINE AUTO 11 /HPF (0-3)
[2018-01-09 01:58] LABS: ANION GAP 7 MEQ/L (8-16); BLOOD UREA NITROGEN 5 MG/DL (7-18); CALCIUM LEVEL 8.9 MG/DL (8.5-10.1); CARBON DIOXIDE LEVEL 24 MEQ/L (21-32); CHLORIDE LEVEL 113 MEQ/L (98-107); GLOMERULAR FILTRATION RATE > 60.0 (>60); GLUCOSE, FASTING 89 MG/DL (70-100); POTASSIUM SERUM 4.4 MEQ/L (3.5-5.1); SODIUM LEVEL 144 MEQ/L (136-145)
[2018-01-09 02:06] LABS: BASO % 0.2 % (0.0-1.0); EOS # 0.3 10^3/uL (0.0-0.50); EOS % 2.4 % (0.0-3.0); HEMATOCRIT 38.8 % (36.0-47.0); HEMOGLOBIN 12.9 g/dl (12.0-16.0); IMMATURE GRANULOCYTE % 0.2 % (0-3.0); LYMPH # 1.7 10^3/uL (1.5-4.5); LYMPH % 13.6 % (24.0-44.0); MEAN CORPUSCULAR HEMOGLOBIN 30.2 pg (27.0-33.0); MEAN CORPUSCULAR HGB CONC 33.2 g/dl (32.0-36.5); MEAN CORPUSCULAR VOLUME 90.9 fl (80.0-96.0); MONO # 0.8 10^3/uL (0.0-0.8); MONO % 6.4 % (0.0-5.0); NEUTROPHILS # 9.6 10^3/uL (1.8-7.7); NEUTROPHILS % 77.2 % (36.0-66.0); PLATELET COUNT, AUTOMATED 239 10^3/uL (150-450); RED BLOOD COUNT 4.27 10^6/uL (4.00-5.40); RED CELL DISTRIBUTION WIDTH 12.5 % (11.5-14.5); WHITE BLOOD COUNT 12.4 10^3/uL (4.0-10.0)
[2018-01-09] MEDS: KETOROLAC 30 MG/ML VIAL (J1885) IV ×2 (02:44)
[2018-01-09] MEDS ORDERED: ISOVUE-370 76% 100ML VIAL (Q9967) As Ordered ×2 (02:45)
[2018-01-09] MEDS: LR 1,000 ML IV ×2 (06:13)
[2018-01-09] MEDS: METHYLERGONOVINE MALEATE 0.2 MG/ML VIAL (J2210) IM ×4 (11:43→15:30)
== END 2018-01-09 15:40 | disposition home or self-care (01) ==
LOC: M ED 22:25 → M ED INP 01-09 05:35 → M OBS 01-09 05:35 → M ED INP 01-09 05:00 → M OBS 01-09 05:35
DX: O02.1 Missed abortion (principal); J45.909 Unspecified asthma, uncomplicated; N97.9 Female infertility, unspecified; Q51.3 Bicornate uterus
CPT/HCPCS: Q9967

== ENCOUNTER → 2018-03-05 | Outpatient (REF) | payer BC ==
[2018-03-05 18:59] LABS: BASO % 0.5 % (0.0-1.0); EOS # 0.5 10^3/uL (0.0-0.50); EOS % 6.6 % (0.0-3.0); HEMATOCRIT 43.1 % (36.0-47.0); IMMATURE GRANULOCYTE % 0.3 % (0-3.0); LYMPH # 1.8 10^3/uL (1.5-4.5); LYMPH % 24.7 % (24.0-44.0); MEAN CORPUSCULAR HEMOGLOBIN 29.7 pg (27.0-33.0); MEAN CORPUSCULAR HGB CONC 32.5 g/dl (32.0-36.5); MEAN CORPUSCULAR VOLUME 91.3 fl (80.0-96.0); MONO # 0.6 10^3/uL (0.0-0.8); NEUTROPHILS # 4.4 10^3/uL (1.8-7.7); NEUTROPHILS % 59.9 % (36.0-66.0); PLATELET COUNT, AUTOMATED 322 10^3/uL (150-450); RED BLOOD COUNT 4.72 10^6/uL (4.00-5.40); RED CELL DISTRIBUTION WIDTH 12.5 % (11.5-14.5); WHITE BLOOD COUNT 7.3 10^3/uL (4.0-10.0)
[2018-03-05 19:05] LABS: APPEARANCE, URINE CLEAR (CLEAR); BACTERIA, URINE AUTO NEGATIVE (NEGATIVE); BILIRUBIN, URINE AUTO NEGATIVE (NEGATIVE); BLOOD, URINE BLOOD 1+ (NEGATIVE); COLOR, URINE YELLOW (YELLOW); GLUCOSE, URINE (UA) AUTO NEGATIVE (NEGATIVE); KETONE, URINE AUTO NEGATIVE (NEGATIVE); LEUKOCYTE ESTERASE, URINE AUTO NEGATIVE (NEGATIVE); MUCUS, URINE SMALL (NEGATIVE); NITRITE, URINE AUTO NEGATIVE (NEGATIVE); PROTEIN, URINE AUTO NEGATIVE (NEGATIVE); RBC, URINE AUTO 0 /HPF (0-3); SPECIFIC GRAVITY URINE AUTO 1.008 (1.002-1.035); SQUAMOUS EPITHELIAL CELL UR AU 1 /HPF (0-6); UROBILINOGEN, URINE AUTO 0.2 mg/dL (0.0-2.0); WBC, URINE AUTO 1 /HPF (0-3)
[2018-03-05 19:14] LABS: ALBUMIN 3.8 GM/DL (3.2-5.2); ALBUMIN/GLOBULIN RATIO 0.97 (1.00-1.93); ALKALINE PHOSPHATASE 60 U/L (45-117); ALT/SGPT 22 U/L (12-78); ANION GAP 6 MEQ/L (8-16); AST/SGOT 12 U/L (7-37); BILIRUBIN,TOTAL 0.3 MG/DL (0.2-1.0); BLOOD UREA NITROGEN 8 MG/DL (7-18); CALCIUM LEVEL 8.5 MG/DL (8.5-10.1); CARBON DIOXIDE LEVEL 26 MEQ/L (21-32); CHLORIDE LEVEL 110 MEQ/L (98-107); CREATININE FOR GFR 0.86 MG/DL (0.55-1.30); GLOMERULAR FILTRATION RATE > 60.0 (>60); GLUCOSE, FASTING 96 MG/DL (70-100); POTASSIUM SERUM 4.2 MEQ/L (3.5-5.1); SODIUM LEVEL 142 MEQ/L (136-145); TOTAL PROTEIN 7.7 GM/DL (6.4-8.2)
== END ==
LOC: M SFHCADAM 18:29
DX: R10.31 Right lower quadrant pain (principal)
CPT/HCPCS: 80053

== ENCOUNTER → 2018-05-04 | Outpatient (REF) | payer BC ==
[2018-05-04 22:24] LABS: APPEARANCE, URINE HAZY (CLEAR); BACTERIA, URINE AUTO NEGATIVE (NEGATIVE); BILIRUBIN, URINE AUTO NEGATIVE (NEGATIVE); BLOOD, URINE BLOOD NEGATIVE (NEGATIVE); COLOR, URINE YELLOW (YELLOW); GLUCOSE, URINE (UA) AUTO NEGATIVE (NEGATIVE); KETONE, URINE AUTO NEGATIVE (NEGATIVE); LEUKOCYTE ESTERASE, URINE AUTO NEGATIVE (NEGATIVE); MUCUS, URINE SMALL (NEGATIVE); NITRITE, URINE AUTO NEGATIVE (NEGATIVE); PROTEIN, URINE AUTO NEGATIVE (NEGATIVE); RBC, URINE AUTO 2 /HPF (0-3); SQUAMOUS EPITHELIAL CELL UR AU 6 /HPF (0-6); UROBILINOGEN, URINE AUTO 0.2 mg/dL (0.0-2.0); WBC, URINE AUTO 9 /HPF (0-3)
== END ==
LOC: M LAB REF 10:08
DX: N39.0 Urinary tract infection, site not specified (principal)
CPT/HCPCS: 81001

== ENCOUNTER → 2018-07-06 | Outpatient (REF) | payer BC ==
[2018-07-06 20:17] LABS: HEMATOCRIT 43.3 % (36.0-47.0); HEMOGLOBIN 13.9 g/dl (12.0-15.5); MEAN CORPUSCULAR HEMOGLOBIN 29.8 pg (27.0-33.0); MEAN CORPUSCULAR HGB CONC 32.1 g/dl (32.0-36.5); MEAN CORPUSCULAR VOLUME 92.7 fl (80.0-96.0); PLATELET COUNT, AUTOMATED 299 10^3/uL (150-450); RED BLOOD COUNT 4.67 10^6/uL (4.00-5.40); WHITE BLOOD COUNT 8.7 10^3/uL (4.0-10.0)
[2018-07-06 21:58] LABS: HCG, SERUM QUANTITATIVE 2828 MIU/ML
[2018-07-07 10:11] LABS: RUBELLA IgG QUALITATIVE IMMUNE (IMMUNE)
[2018-07-07 10:26] LABS: HBsAg Prenatal NEGATIVE (NEGATIVE)
[2018-07-07 10:41] LABS: HIV 1&2 SCREEN CENTAUR NEGATIVE (NEGATIVE)
[2018-07-07 10:41] LABS: HEPATITIS C VIRUS ABY INDEX 0.2 INDEX (<0.8)
== END ==
LOC: M LAB REF 17:18
DX: O36.80X0 Pregnancy with inconclusive fetal viability, not applicable or unspecified (principal)
CPT/HCPCS: 86762

== ENCOUNTER 2018-07-08 19:28 | Emergency (ER) | payer BC ==
[2018-07-08 20:40] LABS: BASO % 0.4 % (0.0-1.0); EOS # 0.4 10^3/uL (0.0-0.50); EOS % 3.5 % (0.0-3.0); HEMOGLOBIN 14.5 g/dl (12.0-15.5); IMMATURE GRANULOCYTE % 0.4 % (0-3.0); LYMPH # 2.3 10^3/uL (1.5-4.5); LYMPH % 20.5 % (24.0-44.0); MEAN CORPUSCULAR HEMOGLOBIN 29.9 pg (27.0-33.0); MEAN CORPUSCULAR VOLUME 90.7 fl (80.0-96.0); MONO # 0.7 10^3/uL (0.0-0.8); MONO % 6.6 % (0.0-5.0); NEUTROPHILS # 7.8 10^3/uL (1.8-7.7); NEUTROPHILS % 68.6 % (36.0-66.0); PLATELET COUNT, AUTOMATED 293 10^3/uL (150-450); RED BLOOD COUNT 4.85 10^6/uL (4.00-5.40); RED CELL DISTRIBUTION WIDTH 12.7 % (11.5-14.5); WHITE BLOOD COUNT 11.3 10^3/uL (4.0-10.0)
[2018-07-08] MEDS: RHOGAM 300 MCG (1500 IU) INJ (J2790) IM (22:45)
[2018-07-08] MEDS: ACETAMINOPHEN 325 MG TAB PO (23:00)
[2018-07-08 23:09] LABS: AB SCREEN (INDIRECT COOMBS)VIS 1 1
[2018-07-08 23:40] LABS: HCG, SERUM QUANTITATIVE 2314 MIU/ML
== END 2018-07-09 00:34 | disposition home or self-care (01) ==
LOC: M ED 07-09 00:34
DX: O20.0 Threatened abortion (principal); O10.911 Unspecified pre-existing hypertension complicating pregnancy, first trimester; O99.511 Diseases of the respiratory system complicating pregnancy, first trimester; J45.909 Unspecified asthma, uncomplicated; O34.00 Maternal care for unspecified congenital malformation of uterus, unspecified trimester; Z3A.01 Less than 8 weeks gestation of pregnancy; Z88.8 Allergy status to other drugs, medicaments and biological substances; Z88.2 Allergy status to sulfonamides; Z91.048 Other nonmedicinal substance allergy status
CPT/HCPCS: 76801

== ENCOUNTER → 2018-07-08 | Outpatient (REF) | payer BC ==
[2018-07-08 19:13] LABS: HCG, SERUM QUANTITATIVE 2607 MIU/ML
== END ==
LOC: M LAB REF 16:31
DX: O36.80X0 Pregnancy with inconclusive fetal viability, not applicable or unspecified (principal)
CPT/HCPCS: 84702

== ENCOUNTER → 2018-07-11 | Outpatient (CLI) | payer BC ==
[2018-07-11 17:44] LABS: HCG, SERUM QUANTITATIVE 248 MIU/ML
== END ==
LOC: M ADAMS 13:31
DX: O20.0 Threatened abortion (principal); Z3A.00 Weeks of gestation of pregnancy not specified
CPT/HCPCS: 84702

== ENCOUNTER → 2018-07-13 | Outpatient (REF) | payer BC ==
[2018-07-13 18:24] LABS: HCG, SERUM QUANTITATIVE 84 MIU/ML
== END ==
LOC: M LAB REF 17:35
DX: O20.0 Threatened abortion (principal)

== ENCOUNTER → 2018-07-19 | Outpatient (REF) | payer BC ==
[2018-07-19 14:17] LABS: HCG, SERUM QUANTITATIVE 7 MIU/ML
== END ==
LOC: M LAB REF 13:27
DX: O20.0 Threatened abortion (principal)
CPT/HCPCS: 84702

== ENCOUNTER → 2018-07-25 | Outpatient (CLI) | payer BC | LOC: M LRY 17:18 | DX: R10.13 Epigastric pain (principal); Z90.49 Acquired absence of other specified parts of digestive tract | CPT/HCPCS: 74021 ==

== ENCOUNTER → 2018-07-25 | Outpatient (REF) | payer BC | LOC: M SFHCLERA 18:06 | DX: K29.70 Gastritis, unspecified, without bleeding (principal) ==

== ENCOUNTER → 2018-07-26 | Outpatient (REF) | payer BC ==
[2018-07-26 14:35] LABS: HCG, SERUM QUANTITATIVE < 1.0 MIU/ML
== END ==
LOC: M LAB REF 13:23
DX: O20.0 Threatened abortion (principal)
CPT/HCPCS: 84702

== ENCOUNTER → 2018-07-27 | Outpatient (REF) | payer BC ==
[2018-07-30 00:24] LABS: H PYLORI STOOL ANTIGEN Negative (Negative)
== END ==
LOC: M LAB REF 19:48
DX: K29.70 Gastritis, unspecified, without bleeding (principal)
CPT/HCPCS: 87338

== ENCOUNTER 2018-08-16 18:40 | Emergency (ER) | payer BC ==
[2018-08-16 20:06] LABS: BASO % 0.4 % (0.0-1.0); EOS # 0.5 10^3/uL (0.0-0.50); EOS % 4.9 % (0.0-3.0); HEMATOCRIT 43.2 % (36.0-47.0); HEMOGLOBIN 14.5 g/dl (12.0-15.5); IMMATURE GRANULOCYTE % 0.3 % (0-3.0); LYMPH # 1.9 10^3/uL (1.5-4.5); LYMPH % 18.3 % (24.0-44.0); MEAN CORPUSCULAR HEMOGLOBIN 29.8 pg (27.0-33.0); MEAN CORPUSCULAR HGB CONC 33.6 g/dl (32.0-36.5); MEAN CORPUSCULAR VOLUME 88.9 fl (80.0-96.0); MONO # 0.6 10^3/uL (0.0-0.8); MONO % 5.5 % (0.0-5.0); NEUTROPHILS # 7.2 10^3/uL (1.8-7.7); NEUTROPHILS % 70.6 % (36.0-66.0); PLATELET COUNT, AUTOMATED 299 10^3/uL (150-450); RED BLOOD COUNT 4.86 10^6/uL (4.00-5.40); RED CELL DISTRIBUTION WIDTH 12.3 % (11.5-14.5); WHITE BLOOD COUNT 10.2 10^3/uL (4.0-10.0)
[2018-08-16 20:28] LABS: ALBUMIN 3.6 GM/DL (3.2-5.2); ALBUMIN/GLOBULIN RATIO 0.88 (1.00-1.93); ALKALINE PHOSPHATASE 70 U/L (45-117); ALT/SGPT 16 U/L (12-78); ANION GAP 5 MEQ/L (8-16); AST/SGOT 13 U/L (7-37); BILIRUBIN,DIRECT < 0.1 MG/DL (0.0-0.2); BILIRUBIN,TOTAL 0.4 MG/DL (0.2-1.0); BLOOD UREA NITROGEN 7 MG/DL (7-18); CALCIUM LEVEL 8.9 MG/DL (8.5-10.1); CARBON DIOXIDE LEVEL 29 MEQ/L (21-32); CHLORIDE LEVEL 106 MEQ/L (98-107); GLOMERULAR FILTRATION RATE > 60.0 (>60); GLUCOSE, FASTING 104 MG/DL (70-100); LIPASE 167 U/L (73-393); POTASSIUM SERUM 3.9 MEQ/L (3.5-5.1); SODIUM LEVEL 140 MEQ/L (136-145); TOTAL PROTEIN 7.7 GM/DL (6.4-8.2)
[2018-08-16 20:50] LABS: KETONE, URINE AUTO RFX NEGATIVE (NEGATIVE); LEUKOCYTE ESTERASE UR AUTO RFX NEGATIVE (NEGATIVE); MUCUS, URINE RFX SMALL (NEGATIVE); NITRITE, URINE AUTO RFX NEGATIVE (NEGATIVE); RBC, URINE AUTO RFX 1 /HPF (0-3); SPECIFIC GRAVITY UR AUTO RFX 1.014 (1.002-1.035); SQUAM EPITHELIAL CELL UR AURFX 2 /HPF (0-6); WBC, URINE AUTO RFX 1 /HPF (0-3)
[2018-08-16 21:35] LABS: HCG, SERUM QUANTITATIVE < 1.0 MIU/ML
[2018-08-16] MEDS: NORCO, ANEXSIA 5/325MG TABLET (HYDROcodone/ACETAMINOPHEN) PO (22:20)
== END 2018-08-16 23:23 | disposition home or self-care (01) ==
LOC: M ED 18:40
DX: R10.31 Right lower quadrant pain (principal); Q51.3 Bicornate uterus; Z79.899 Other long term (current) drug therapy; J30.2 Other seasonal allergic rhinitis; Z88.1 Allergy status to other antibiotic agents; Z88.8 Allergy status to other drugs, medicaments and biological substances; Z91.89 Other specified personal risk factors, not elsewhere classified
CPT/HCPCS: 76856

== ENCOUNTER → 2018-09-28 | Outpatient (REF) | payer BC ==
[2018-09-28 19:04] LABS: HEMATOCRIT 43.1 % (36.0-47.0); HEMOGLOBIN 14.1 g/dl (12.0-15.5); MEAN CORPUSCULAR HEMOGLOBIN 29.7 pg (27.0-33.0); MEAN CORPUSCULAR HGB CONC 32.7 g/dl (32.0-36.5); MEAN CORPUSCULAR VOLUME 90.9 fl (80.0-96.0); PLATELET COUNT, AUTOMATED 256 10^3/uL (150-450); RED BLOOD COUNT 4.74 10^6/uL (4.00-5.40); RED CELL DISTRIBUTION WIDTH 12.6 % (11.5-14.5); WHITE BLOOD COUNT 10.1 10^3/uL (4.0-10.0)
[2018-09-28 20:03] LABS: HCG, SERUM QUANTITATIVE 39695 MIU/ML
[2018-09-29 09:30] LABS: RUBELLA IgG QUALITATIVE IMMUNE (IMMUNE)
[2018-09-29 09:31] LABS: HBsAg Prenatal NEGATIVE (NEGATIVE)
[2018-09-29 09:58] LABS: HEPATITIS C VIRUS ABY INDEX 0.1 INDEX (<0.8)
[2018-09-29 09:59] LABS: HIV 1&2 SCREEN CENTAUR NEGATIVE (NEGATIVE)
== END ==
LOC: M LAB REF 16:34
DX: Z32.01 Encounter for pregnancy test, result positive (principal)
CPT/HCPCS: 86762

== ENCOUNTER 2018-12-24 18:25 | Emergency (ER) | payer BC ==
[~2018-12-24] VITALS: Ht 165.1 cm; Wt 118.6 kg
[~2018-12-24 18:25] MED LIST changes: +IBUP1TAB7 PO; +MACR100C43 PO; +METH0.2T53 PO; +MULT1TAB10 PO; +NORCOTAB PO
[2018-12-24] MEDS ORDERED: RANI150C (18:33)
[2018-12-24 19:01] VITALS: BP 152/89
[2018-12-24] MEDS ORDERED: ZITHTAB PO (19:24)
[2018-12-24] MEDS ORDERED: AMOX875T PO (19:34)
== END 2018-12-24 19:35 | disposition home or self-care (01) ==
LOC: M ED 18:25
DX: O99.519 Diseases of the respiratory system complicating pregnancy, unspecified trimester (principal); O99.419 Diseases of the circulatory system complicating pregnancy, unspecified trimester; Z79.899 Other long term (current) drug therapy; Z91.89 Other specified personal risk factors, not elsewhere classified; Z88.1 Allergy status to other antibiotic agents; Z88.8 Allergy status to other drugs, medicaments and biological substances

== ENCOUNTER → 2019-02-04 | Outpatient (REF) | payer BC ==
[~2019-02-04] MED LIST changes: +AMOX875T PO; +HYDR-3715 PO; -NORCOTAB PO; +RANI150C; +ZITHTAB PO
[2019-02-05 17:49] LABS: CREATININE, URINE 23.7 MG/DL
== END ==
LOC: M LAB REF 08:53
PROVIDERS: ATTEND Obstetrics & Gynecology
DX: O13.9 Gestational [pregnancy-induced] hypertension without significant proteinuria, unspecified trimester (principal)

== ENCOUNTER → 2019-02-28 | Outpatient (CLI) | payer OTHER ==
[2019-02-28 12:51] LABS: HEMOGLOBIN 12.2 g/dl (12.0-15.5); MEAN CORPUSCULAR HEMOGLOBIN 30.7 pg (27.0-33.0); PLATELET COUNT, AUTOMATED 234 10^3/uL (150-450); RED BLOOD COUNT 3.98 10^6/uL (4.00-5.40); WHITE BLOOD COUNT 12.3 10^3/uL (4.0-10.0)
== END ==
LOC: M LAB 11:10
PROVIDERS: ATTEND Obstetrics & Gynecology
DX: Z34.83 Encounter for supervision of other normal pregnancy, third trimester (principal)

== ENCOUNTER → 2019-03-31 | Outpatient (CLI) | payer OTHER ==
--- NOTE | 2019-04-04 11:37 | REP ---
OBSTETRIC SONOGRAPHY: HISTORY: Gestational hypertension without proteinuria. Third trimester scan. FINDINGS: Scanning through the gravid uterus demonstrates a viable single intrauterine gestation in a breech lie. motion is observed and heart rate is recorded at 133 beats per minute. The placenta is anaerobe fundal grade 2 without evidence of previa or abruption. Amniotic fluid is subjectively normal. Closed cervical length is 3.9 cm. No extrauterine abnormality is observed. Umbilical cord is seen draping across the shoulders. The following anatomic structures are identified and felt to be unremarkable: cranium, cerebellum posterior fossa, diaphragm, left-sided stomach, three-vessel cord, kidneys and bladder. Biometry Chart: BPD 8.8 cm = 35 weeks 4 days HC 33.1 cm = 37 weeks 5 days AC 31.3 cm = 35 weeks 2 days FL 7.0 cm = 35 weeks 6 days HL 5.5 cm = 31 weeks 5 days CD 4.1 cm = 32 weeks 5 days HC/AC ratio normal 1.06. Cephalic index normal 0.73. Estimated weight 2747 grams, 6 pounds 0 ounces, 47th percentile for 35 weeks 6 days. DAIANA normal 21.7 cm. Biophysical profile score 8 out of a possible 8. S/D ratio normal 2.61. IMPRESSION: Viable single intrauterine gestation at 35 weeks 6 days by today's composite criteria. VLADIMIR by today's sonography April 29, 2019. Electronically Signed by Raheem Humphrey MD 04/04/2019 01:38 P
== END ==
LOC: M LRY 13:44
PROVIDERS: ATTEND Obstetrics & Gynecology
DX: O13.3 Gestational [pregnancy-induced] hypertension without significant proteinuria, third trimester (principal); Z3A.35 35 weeks gestation of pregnancy

== ENCOUNTER → 2019-04-06 | Outpatient (CLI) | payer OTHER ==
--- NOTE | 2019-04-06 17:26 | REP ---
Third trimester obstetric ultrasound for gestational hypertension, stat request: There is a single intrauterine gestation in a breech presentation. heart rate is 146 beats per minute. Amniotic fluid volume subjectively is normal. biophysical profile: Breathing - 2.0 Movement - 2.0 Tone - 2.0 Amniotic fluid volume - 2.0 Total 05/26 Gestational age by the first ultrasound is 36 weeks 5 days/VLADIMIR 04/29/2019. Gestational age by LMP is 34 weeks 3 days/VLADIMIR 05/15/2019. Umbilical artery Doppler assessment: S/D ratio 1.92 (2.30-3.30) Resistive Index 0.48 (0.59-0.75 Diastolic Velocity 21.5 (>10 cm/sec) Electronically Signed by Rodney Steen MD 04/06/2019 05:17 P
== END ==
LOC: M RAD 16:25
PROVIDERS: ATTEND Advanced Practice Midwife
DX: O13.3 Gestational [pregnancy-induced] hypertension without significant proteinuria, third trimester (principal); Z3A.34 34 weeks gestation of pregnancy

== ENCOUNTER → 2019-04-13 | Outpatient (CLI) | payer OTHER ==
[~2019-04-13] MED LIST changes: +ALBU17IN2 INH; +MULTTAB20 PO
--- NOTE | 2019-04-13 13:36 | REP ---
Clinical: well-being Comparison: 04/06/2019 . Findings: Examination demonstrates a single live intrauterine in breech presentation. motion is identified by technologist. Placenta is noted anterior/fundal and grade one without evidence for placenta previa or abruption. Amniotic fluid volume is normal. Nuchal cord cannot be excluded. FHR equals 156 beats per minute. Biophysical profile score: 8/8 Amniotic fluid index: 19.2 cm (7.8 - 24.9) Umbilical cord SD ratio: 2.45 (2.00 - 3.00) Impression: Single live advanced gestation in breech presentation. Biophysical profile score and amniotic fluid volume are normal. Nuchal cord cannot be excluded. Electronically Signed by Kehinde Wagoner MD 04/13/2019 01:27 P
== END ==
LOC: M RAD 12:47
PROVIDERS: ATTEND Advanced Practice Midwife
DX: O13.3 Gestational [pregnancy-induced] hypertension without significant proteinuria, third trimester (principal); O24.419 Gestational diabetes mellitus in pregnancy, unspecified control; Z3A.35 35 weeks gestation of pregnancy

== ENCOUNTER → 2019-04-20 | Outpatient (CLI) | payer OTHER ==
[~2019-04-20] MED LIST changes: +IBUP80TA PO; +OXYC1TAB23 PO; +TUMS500C PO
--- NOTE | 2019-04-20 14:21 | REP ---
OB ULTRASOUND: Real-time sonographic evaluation of the gravid uterus performed. There is a single living intrauterine gestation with an estimated age 38 weeks 5 days with EDC 04/29/2019. Today's measurements indicate appropriate growth. Biometry and Growth: BPD 94 mm = 38 weeks 4 days, 45th percentile HC 336 mm = 38 weeks 4 days, 46th percentile AC 352 mm = 39 weeks 1 day, 55th percentile FL 73 mm = 37 weeks 4 days, 33rd percentile HC/AC ratio 0.96 within normal range. Estimated weight 3544 grams 59th percentile. Cervical length: Cervix is closed and measures 4.9 cm in length. heart rate: 147 beats per minute. position: Transverse with head toward the maternal left side. Placenta: Fundal and posterior, grade 2 with no previa or abruption. Amniotic fluid: Appears within normal limits with DAIANA 22.1. Biophysical Profile Score: 8/8. S/D Ratio: 2.88 is slightly above normal range of 1.60 to 2.60. Visualized anatomy today includes lateral ventricles and choroid plexus, stomach, three-vessel cord, kidneys and bladder, which are grossly unremarkable. Electronically Signed by Rodney Sung MD 04/20/2019 04:34 P
== END ==
LOC: M RAD 12:19
PROVIDERS: ATTEND Advanced Practice Midwife
DX: O13.3 Gestational [pregnancy-induced] hypertension without significant proteinuria, third trimester (principal); O24.419 Gestational diabetes mellitus in pregnancy, unspecified control; Z3A.38 38 weeks gestation of pregnancy

== ENCOUNTER → 2019-04-20 | Outpatient (REF) | payer OTHER | LOC: M LAB REF 16:49 | PROVIDERS: ATTEND Specialist | DX: O09.523 Supervision of elderly multigravida, third trimester (principal) ==

== ENCOUNTER → 2019-04-20 | Outpatient (CLI) | payer OTHER ==
[2019-04-20 14:28] LABS: BLOOD UREA NITROGEN 10 MG/DL (7-18); CALCIUM LEVEL 8.2 MG/DL (8.5-10.1); CARBON DIOXIDE LEVEL 23 MEQ/L (21-32); CHLORIDE LEVEL 106 MEQ/L (98-107); CREATININE FOR GFR 0.75 MG/DL (0.55-1.30); GLOMERULAR FILTRATION RATE > 60.0 (>60); GLUCOSE, FASTING 71 MG/DL (70-100); POTASSIUM SERUM 4.2 MEQ/L (3.5-5.1); SODIUM LEVEL 138 MEQ/L (136-145)
--- NOTE | 2019-04-21 13:25 | ECGEPIP ---
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
== END ==
LOC: M LAB 13:13
PROVIDERS: ATTEND Anesthesiology
DX: Z00.00 Encounter for general adult medical examination without abnormal findings (principal)

== ENCOUNTER 2019-04-26 04:59 | Inpatient (IN) | payer OTHER ==
[2019-04-26] VITALS (8 sets, daily range): BP systolic 117–143; BP diastolic 60–77
[~2019-04-26] VITALS: Ht 165.1 cm; Wt 125.3 kg
[~2019-04-26 04:59] MED LIST changes: -IBUP80TA PO; -OXYC1TAB23 PO; -TUMS500C PO
[2019-04-26] MEDS ORDERED: LACTATED RINGER'S 1000 ML IV ONE (07:00)
[2019-04-26] MEDS ORDERED: BICITRA 30ML SOLN UDC PO ONE (07:00)
[2019-04-26] MEDS ORDERED: TUMS500C PO (07:20)
[2019-04-26 07:58] LABS: HEMATOCRIT 38.1 % (36.0-47.0); HEMOGLOBIN 12.8 g/dl (12.0-15.5); MEAN CORPUSCULAR HEMOGLOBIN 29.7 pg (27.0-33.0); MEAN CORPUSCULAR HGB CONC 33.6 g/dl (32.0-36.5); MEAN CORPUSCULAR VOLUME 88.4 fl (80.0-96.0); PLATELET COUNT, AUTOMATED 248 10^3/uL (150-450); RED BLOOD COUNT 4.31 10^6/uL (4.00-5.40); WHITE BLOOD COUNT 10.8 10^3/uL (4.0-10.0)
[2019-04-26] MEDS ORDERED: LR 1,000 ML IV SCH ×2 (08:00→12:15)
[2019-04-26] MEDS ORDERED: dexameTHASONE 4 MG/ML 1ML VIAL (J1100) As Ordered ONE (09:23)
[2019-04-26] MEDS ORDERED: ONDANSETRON 4MG/2ML VIAL (J2405) As Ordered ONE (09:23)
[2019-04-26] MEDS ORDERED: OXYTOCIN INJ 10 UNITS/ML VIAL (J2590) As Ordered ONE (09:23)
[2019-04-26] MEDS ORDERED: MORPHINE PRES-FREE INJ 10 MG/10 ML VIAL (J2274) As Ordered ONE (09:23)
[2019-04-26] MEDS ORDERED: NALBUPHINE HCL 10 MG/ML AMP (J2300) IV PRN ×2 (10:16→12:15)
[2019-04-26] MEDS ORDERED: ONDANSETRON 4MG/2ML VIAL (J2405) IV PRN ×2 (10:16→11:45)
[2019-04-26] MEDS ORDERED: diphenhydrAMINE INJ 50MG/ML VIAL (J1200) IV PRN (10:16)
[2019-04-26] MEDS ORDERED: NALOXONE INJ 0.4 MG/1 ML VIAL (J2310) IV PRN ×2 (10:16)
[2019-04-26] MEDS ORDERED: METOCLOPRAMIDE INJ 10MG/2ML VIAL (J2765) IV PRN (10:16)
[2019-04-26] MEDS ORDERED: PHENYLephrine HCL 500 MCG/5 ML (100MCG/ML) SYRINGE (J2370) As Ordered ONE (10:44)
[2019-04-26] MEDS ORDERED: MIDAZOLAM INJ 2 MG/2 ML VIAL (J2250) As Ordered ONE (11:07)
[2019-04-26] MEDS ORDERED: KETOROLAC 60 MG/2 ML VIAL (J1885) As Ordered ONE (11:16)
[2019-04-26] MEDS ORDERED: OXYTOCIN DRIP 30 UNITS in APPROPRIATE DILUENT 1 EA IV SCH (11:34)
[2019-04-26] MEDS ORDERED: MEPERIDINE INJ 25 MG/ML VIAL (J2175) As Ordered ONE (11:44)
[2019-04-26] MEDS ORDERED: BUPIVACAINE HCL 0.25% 10 ML VIAL SC ONE (11:45)
[2019-04-26] MEDS ORDERED: oxyCODONE 5MG TAB PO PRN ×2 (11:45)
[2019-04-26] MEDS ORDERED: RHOGAM 300 MCG (1500 IU) INJ (J2790) IM SCH (11:45)
[2019-04-26] MEDS ORDERED: DOCUSATE SODIUM 100 MG CAP PO PRN (11:45)
[2019-04-26] MEDS ORDERED: MEASLES,MUMPS,RUBELLA VACCINE INJ (MMR-II) (90707) SC SCH (11:45)
[2019-04-26] MEDS ORDERED: ACETAMINOPHEN TAB 650MG DOSE (2X325MG) PO PRN (11:45)
[2019-04-26] MEDS ORDERED: MOM 30ML SUSPENSION UDC PO PRN (11:45)
[2019-04-26] MEDS ORDERED: PROMETHAZINE 25 MG TAB PO PRN (11:45)
[2019-04-26] MEDS: MEPERIDINE INJ 25 MG/ML VIAL (J2175) IV PRN ×2 (11:46→11:51)
[2019-04-26] MEDS ORDERED: HYDROMORPHONE HCL 0.5 MG/ 0.5 ML SYRINGE (J1170 PER 1) IV PRN (12:15)
[2019-04-26] MEDS ORDERED: fentaNYL 100 MCG/2 ML INJECTION (J3010) IV PRN (12:15)
[2019-04-26] MEDS ORDERED: PERCOCET 5MG/325MG TAB PO PRN (12:15)
[2019-04-26] MEDS: KETOROLAC 30 MG/ML VIAL (J1885) IV SCH ×2 (16:43→23:49)
--- NOTE | 2019-04-26 20:40 | RO ---
DATE OF PROCEDURE: 04/26/2019 PREPROCEDURE DIAGNOSES: 1. Intrauterine at 37 and 0 weeks gestation in transverse presentation. 2. Gestational hypertension. 3. Gestational diabetes, diet controlled. POSTPROCEDURE DIAGNOSES: 1. Intrauterine at 37 and 0 weeks gestation in transverse presentation. 2. Gestational hypertension. 3. Gestational diabetes, diet controlled. PROCEDURE: Repeat low transverse section. SURGEON: Meghann Conti MD ASSISTANTS: DO Tamika Teran, PYG-3 Jairo Tate OMS-3. ANESTHESIA: Spinal. FLUID: 900 mL. ESTIMATED BLOOD LOSS: 800 mL. URINE OUTPUT: 100 mL. SPECIMENS: None. FINDINGS: Live born female infant from breech presentation. Normal uterus, ovaries, and tubes. Minimal adhesions. COMPLICATIONS: None. INDICATIONS: This is a 38-year-old (G) 6, para (P) 1-1-3-2 who had a notable or gestational diabetes that was well controlled with diet and gestational hypertension. She presents for repeat section. DESCRIPTION OF PROCEDURE: The patient was met and greeted in the preoperative holding area. All questions were answered. Informed consent was reviewed. She was then taken to the operating room where spinal anesthesia was administered and found to be adequate. A Gallardo catheter was inserted, sequential compression devices (SCDs) were on, functioning, and she received antibiotics prior to surgical start time. A time-out procedure was performed. A Pfannenstiel skin incision was made with a knife and carried down to the underlying fascia. The fascia was scored in the midline and the incision was extended laterally with Bolaños scissors. The anterior lip of the fascial incision was grasped with Charity clamps and the underlying rectus muscles were dissected off both bluntly and sharply, and this was repeated on the inferior aspect of the fascial incision. The rectus muscles were then divided in the midline, and the peritoneum was entered bluntly and stretched laterally. The bladder blade was inserted, a bladder flap was created by incising the uterovesical peritoneum. The uterus was palpated and confirmed presentation and rotation. Transverse hysterotomy was made with the scalpel and extended in a cephalocaudad fashion. The fetus had been known in transverse position, and upon delivery was in breech position, and the breech was elevated to the hysterotomy and the baby was delivered via usual breech maneuvers without difficulty. The cord was clamped and cut, and the infant was handed to the pediatric team. The placenta was removed with manual extraction. Cord blood was collected prior to this. The uterus was exteriorized and cleared of all clot and debris. The hysterotomy was then closed in three layers, the first with #0 Vicryl in a running locked fashion, the second was a horizontal imbricating layer, and the third was a running locked layer with #0 Vicryl to ensure hemostasis. Following this, there was excellent hemostasis of the hysterotomy. The posterior cul-de-sac was cleared of all clot and debris. The uterus was then returned to the abdomen. The hysterotomy was again inspected and noted to be hemostatic. The fascia was inspected and noted to be intact. The fascia was then closed with #0 Vicryl in a running fashion, the subcutaneous tissue was closed with #3-0 Vicryl and the skin was closed with #4-0 Monocryl. The patient tolerated the procedure well and was taken to the recovery room in stable condition. All counts were correct per the operating room staff. Dr. Conti was present and scrubbed for the entire procedure.
[2019-04-27 02:00] VITALS: BP 119/62
[2019-04-27] MEDS: KETOROLAC 30 MG/ML VIAL (J1885) IV SCH (05:41)
[2019-04-27 06:00] VITALS: BP 110/67
[2019-04-27 07:20] LABS: HEMATOCRIT 31.6 % (36.0-47.0); MEAN CORPUSCULAR HEMOGLOBIN 28.9 pg (27.0-33.0); MEAN CORPUSCULAR VOLUME 90.3 fl (80.0-96.0); PLATELET COUNT, AUTOMATED 219 10^3/uL (150-450); WHITE BLOOD COUNT 12.5 10^3/uL (4.0-10.0)
[2019-04-27 07:27] LABS: HEMOGLOBIN 10.1 g/dl (12.0-15.5)
--- NOTE | 2019-04-27 07:35 | IPNPDOC ---
Progress Note Date of Service: Apr 27, 2019 Day#: 1 Progress Note SUBJECT: 38 yo G3 now P2103 POD#1 s/p rLTCS at 37 wks for gHTN, GDMA1. She is doing well, pain has been well controlled. Tolerating PO, voiding, ambulating. No ABARCA, CP, SOB, dizziness. Baby is in the NICU for low blood sugar, she is appropriately worried. Tolerating PO, voiding, ambulating. OBJECTIVE: VITAL SIGNS: Within normal limits, afebrile. Vital Signs Label Value Date Time Patient Temperature 98.3 degrees F 04/27/19 0600 Temperature Source Temporal 04/27/19 0600 Pulse 78 04/27/19 0600 Respiratory Rate 18 bpm 04/27/19 0600 Blood Pressure Assessment 110/67 (81) 04/27/19 0600 Source Automatic Cuff (NIBP) Bedside Pulse Oximetry 98 % 04/27/19 0600 Alert and oriented times three. Breath sounds clear to auscultation. Heart rate: Regular rate and rhythm, no murmurs, rubs or gallops. Abdomen: Fundus firm at U-2. Soft, NTTP. Incision c/d/i [Minimal] lochia. ASSESSMENT: 38 yo G3 now P2103 POD#1 s/p rLTCS at 37 wks for gHTN, GDMA1, AMA. She is stable and recovering well. PLAN: -continue routine PP care -gHTN: BPs normal range, asymptomatic -GDMA1: for 2 hr GTT at 6 wks -anticipate discharge home tomorrow Kavon Elliott, PGY3 VS, I&O, 24H, Janelle Vital Signs/I&O Vital Signs Date Time Temp Pulse Resp B/P (MAP) Pulse Ox O2 Delivery O2 Flow Rate FiO2 04/27/19 06:00 98.3 78 18 110/67 (81) 98 I&O- Last 24 Hours up to 6 AM 04/27/19 06:00 Intake Total 5102 ml Output Total 2640 ml Balance 2462 ml Laboratory Data 24H LABS Laboratory Tests 2 04/26/19 07:42: Nucleated Red Blood Cells % (auto) 0.0 04/26/19 08:33: Bedside Glucose (Misc Panel) 102 04/27/19 07:09: Nucleated Red Blood Cells % (auto) 0.0 CBC/BMP Laboratory Tests 04/26/19 07:42 Red Blood Count 4.31, Mean Corpuscular Volume 88.4, Mean Corpuscular Hemoglobin 29.7, Mean Corpuscular Hemoglobin Concent 33.6, Red Cell Distribution Width 13.8 04/27/19 07:09 Red Blood Count 3.50 L, Mean Corpuscular Volume 90.3, Mean Corpuscular Hemoglobin 28.9, Mean Corpuscular Hemoglobin Concent 32.0, Red Cell Distribution Width 14.0 KAVON ELLIOTT PGY-3 Apr 27, 2019 07:35
[2019-04-27] MEDS ORDERED: ADACEL/BOOSTRIX VACCINE (DIPHTH/PERTUSS/ACELL/TETANUS)0.5ML SYR (90715) IM ONE (09:00)
[2019-04-27 10:00] VITALS: BP 120/78
[2019-04-27] MEDS: PRENATAL VITAMINS CHEWABLE TABLET PO SCH (10:29)
[2019-04-27] MEDS: IBUPROFEN 800 MG TAB PO SCH ×2 (13:07→20:31)
[2019-04-27 14:00] VITALS: BP 126/69
[2019-04-27 18:00] VITALS: BP 135/74
[2019-04-27 22:00] VITALS: BP 125/72
[2019-04-28] MEDS: IBUPROFEN 800 MG TAB PO SCH ×3 (03:56→20:55)
[2019-04-28 06:00] VITALS: BP 132/78
--- NOTE | 2019-04-28 07:03 | NUR ---
Progress Note S: Reports voiding without difficulty, positive flatus. in NICU every 3 hours. Pain managed with PO pain medications. Tolerating PO fluids and regular diet. O: T98, P90,R17, 132/78. Breasts: soft, nontender Abdomen: FF @ U/1 Incision: Dressing dry and intact. No new drainage noted Perineum: intact, lochia rubra scant A: PO Day 2 P: Continue supportive post op care and supportive care. Encourage feedings every 3 hours of in NICU. Plan D/C tomorrow.
[2019-04-28] MEDS ORDERED: ALBUTEROL 90 MCG/ACT 8GM HFA INHALER INH PRN (08:00)
[2019-04-28] MEDS: PRENATAL VITAMINS CHEWABLE TABLET PO SCH (11:12)
[2019-04-28 18:00] VITALS: BP 135/67
[2019-04-29] MEDS: IBUPROFEN 800 MG TAB PO SCH (05:04)
[2019-04-29 06:47] VITALS: BP 141/80
[2019-04-29] MEDS ORDERED: OXYC1TAB23 PO (06:47)
[2019-04-29] MEDS ORDERED: IBUP80TA PO (06:47)
[2019-04-29] MEDS: PRENATAL VITAMINS CHEWABLE TABLET PO SCH (09:08)
--- NOTE | 2019-05-09 16:09 | DSES ---
DATE OF ADMISSION: 04/26/2019 DATE OF DISCHARGE: 04/29/2019 A 38-year-old (G) 6, para (P) 2 female at 37-0/7 weeks gestation who presents for elective repeat section. She has a history of two prior sections. The indication for delivery at less 39 weeks is diagnosed gestational hypertension as well as gestational diabetes. HOSPITAL COURSE: On 04/26/2019, the patient underwent repeat low transverse section for a live born female in the breech presentation. The procedure was without complication. Postoperative course was unremarkable. She had adequate return of bladder and bowel function. Her blood pressures were stable. She was deemed stable for discharge on postoperative day number three. ADMISSION DIAGNOSES: 1. at 37 weeks. 2. Hypertension. 3. Diabetes. 4. Prior (C) section times two. DISCHARGE DIAGNOSIS: Delivered. PROCEDURE: Repeat low transverse section. DISPOSITION: The patient will followup with Dr. Conti in two weeks. Instructions were reviewed.
== END 2019-04-29 11:10 | disposition home or self-care (01) | DRG 540 ==
LOC: UNDOADMIN 04:59 → M LDI 04:59 → UNDODISIN 05:03 → M LDI 06:53 → M OBS 13:54
PROVIDERS: ADMIT Obstetrics & Gynecology; ATTEND Obstetrics & Gynecology
PROC: 10D00Z1 Extraction of Products of Conception, Low, Open Approach (ICD-10-PCS; principal; 2019-04-26 09:30)
DX: O34.211 Maternal care for low transverse scar from previous cesarean delivery (principal); O24.420 Gestational diabetes mellitus in childbirth, diet controlled; Z3A.37 37 weeks gestation of pregnancy; Z37.0 Single live birth; O13.4 Gestational [pregnancy-induced] hypertension without significant proteinuria, complicating childbirth

== ENCOUNTER 2019-08-29 23:14 | Emergency (ER) | payer OTHER ==
[~2019-08-29] VITALS: Ht 165.1 cm; Wt 120.0 kg
[~2019-08-29 23:14] MED LIST changes: -ALBU17IN2 INH; +IBUP80TA PO; +OXYC1TAB23 PO; +PROV108A INH; +TUMS500C PO
[2019-08-29] MEDS ORDERED: ALBU8.5H (23:19)
[2019-08-29] MEDS ORDERED: LEVO50TA5 (23:19)
[2019-08-30 00:13] LABS: BASO % 0.2 % (0.0-1.0); EOS % 0.1 % (0.0-3.0); HEMATOCRIT 46.7 % (36.0-47.0); HEMOGLOBIN 14.6 g/dl (12.0-15.5); LYMPH # 0.9 10^3/uL (1.5-5.0); LYMPH % 6.7 % (24.0-44.0); MEAN CORPUSCULAR HEMOGLOBIN 28.6 pg (27.0-33.0); MEAN CORPUSCULAR HGB CONC 31.3 g/dl (32.0-36.5); MEAN CORPUSCULAR VOLUME 91.4 fl (80.0-96.0); MONO # 0.1 10^3/uL (0.0-0.8); MONO % 0.7 % (0.0-5.0); NEUTROPHILS # 11.7 10^3/uL (1.5-8.5); NEUTROPHILS % 91.8 % (36.0-66.0); PLATELET COUNT, AUTOMATED 321 10^3/uL (150-450); RED BLOOD COUNT 5.11 10^6/uL (4.00-5.40); WHITE BLOOD COUNT 12.8 10^3/uL (4.0-10.0)
[2019-08-30 00:15] LABS: ABG BASE EXCESS -2.9 (-2.0-2.0); ABG HCO3 19.1 MEQ/L (22.0-26.0); ABG PARTIAL PRESSURE O2 134.2 mmHg (75.0-100.0); ABG STANDARD HCO3 22.1 MEQ/L (22.0-26.0); ABG TOTAL CO2 19.9 MEQ/L (22.0-29.0); ABG pH (ARTERIAL) 7.468 UNITS (7.350-7.450)
[2019-08-30] MEDS ORDERED: NS 1,000 ML IV ONE (00:15)
[2019-08-30 00:47] LABS: BLOOD UREA NITROGEN 10 MG/DL (7-18); CARBON DIOXIDE LEVEL 24 MEQ/L (21-32); CHLORIDE LEVEL 107 MEQ/L (98-107); CK-MB VALUE MASS 1.2 NG/ML (<3.6); CPK CREATINE PHOSPHOKINASE 207 U/L (26-192); CREATININE FOR GFR 1.05 MG/DL (0.55-1.30); GLOMERULAR FILTRATION RATE > 60.0 (>60); GLUCOSE, FASTING 187 MG/DL (70-100); MB/CK RELATIVE INDEX 0.58 (< OR =4); POTASSIUM SERUM 4.7 MEQ/L (3.5-5.1); SODIUM LEVEL 140 MEQ/L (136-145); TROPONIN I < 0.02 NG/ML (< 0.10)
[2019-08-30] MEDS ORDERED: PRED20TA PO (01:29)
[2019-08-30 01:47] VITALS: BP 129/60
--- NOTE | 2019-08-30 23:12 | ECGEPIP ---
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
--- NOTE | 2019-08-30 23:15 | ECGEPIP ---
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
== END 2019-08-30 01:48 | disposition home or self-care (01) ==
LOC: M ED 23:14
DX: J45.901 Unspecified asthma with (acute) exacerbation (principal); E03.9 Hypothyroidism, unspecified; Z79.890 Hormone replacement therapy; Z88.1 Allergy status to other antibiotic agents; Z88.2 Allergy status to sulfonamides; Z88.8 Allergy status to other drugs, medicaments and biological substances; Z91.048 Other nonmedicinal substance allergy status

== ENCOUNTER 2019-09-04 15:12 | Emergency (ER) | payer OTHER ==
[~2019-09-04] VITALS: Ht 165.1 cm; Wt 132.0 kg
[~2019-09-04 15:12] MED LIST changes: +ALBU8.5H; +LEVO50TA5; +PRED20TA PO
[2019-09-04] MEDS ORDERED: SYMB16INH INH (15:48)
[2019-09-04 15:54] LABS: BASO % 0.3 % (0.0-1.0); EOS # 0.3 10^3/uL (0.0-0.5); EOS % 2.7 % (0.0-3.0); HEMOGLOBIN 14.1 g/dl (12.0-15.5); LYMPH # 1.9 10^3/uL (1.5-5.0); MEAN CORPUSCULAR HEMOGLOBIN 28.7 pg (27.0-33.0); MEAN CORPUSCULAR VOLUME 89.4 fl (80.0-96.0); MONO # 0.7 10^3/uL (0.0-0.8); NEUTROPHILS # 7.4 10^3/uL (1.5-8.5); NEUTROPHILS % 71.6 % (36.0-66.0); PLATELET COUNT, AUTOMATED 305 10^3/uL (150-450); RED BLOOD COUNT 4.92 10^6/uL (4.00-5.40); WHITE BLOOD COUNT 10.4 10^3/uL (4.0-10.0)
--- NOTE | 2019-09-04 15:57 | REP ---
Portable chest x-ray: Single view. History: Chest pain. Comparison chest x-ray: July 25, 2018. Findings: Monitoring electrodes are seen. The lungs are well inflated and clear. The pleural angles are sharp. Heart size is normal. Pulmonary vasculature is not increased. No significant bony abnormality is observed. Impression: Negative portable chest x-ray. Electronically Signed by Raheem Humphrey MD 09/04/2019 03:48 P
[2019-09-04 16:31] LABS: BLOOD UREA NITROGEN 11 MG/DL (7-18); CALCIUM LEVEL 8.7 MG/DL (8.5-10.1); CARBON DIOXIDE LEVEL 26 MEQ/L (21-32); CHLORIDE LEVEL 107 MEQ/L (98-107); CK-MB VALUE MASS < 1.0 NG/ML (<3.6); CPK CREATINE PHOSPHOKINASE 95 U/L (26-192); CREATININE FOR GFR 0.93 MG/DL (0.55-1.30); FREE T4 0.91 NG/DL (0.76-1.46); GLOMERULAR FILTRATION RATE > 60.0 (>60); GLUCOSE, FASTING 98 MG/DL (70-100); MB/CK RELATIVE INDEX 1.05 (< OR =4); POTASSIUM SERUM 3.9 MEQ/L (3.5-5.1); SODIUM LEVEL 140 MEQ/L (136-145); TROPONIN I < 0.02 NG/ML (< 0.10)
[2019-09-04 16:37] LABS: HEMOGLOBIN A1c 4.7 %
[2019-09-04] MEDS ORDERED: ISOVUE-370 76% 100ML VIAL (Q9967) As Ordered ONE (17:00)
--- NOTE | 2019-09-04 17:28 | REPVR ---
PROCEDURE INFORMATION: Exam: CT Angiography Chest With Contrast Exam date and time: 09/04/2019 5:05 PM Clinical history: 39 years old, female; Chest pain; Additional info: R/e pe TECHNIQUE: Imaging protocol: Computed tomographic angiography of the chest with intravenous contrast. 3D rendering: MIP reconstructed images were created and reviewed. Radiation optimization: All CT scans at this facility use at least one of these dose optimization techniques: automated exposure control; mA and/or kV adjustment per patient size (includes targeted exams where dose is matched to clinical indication); or iterative reconstruction. Contrast material: ISOVUE 370; Contrast volume: 75 ml; Contrast route: IV; COMPARISON: CT ANGIO CHEST 08/01/2016 11:02 PM FINDINGS: Pulmonary arteries: Normal. No pulmonary emboli. Aorta: Unremarkable. No aortic aneurysm. No aortic dissection. Lungs: Unremarkable. No consolidation. No masses. Pleural space: Unremarkable. No pneumothorax. No pleural effusion. Heart: Unremarkable. No cardiomegaly. No pericardial effusion. Lymph nodes: Unremarkable. No enlarged lymph nodes. Bones/joints: Unremarkable. No acute fracture. Soft tissues: Unremarkable. IMPRESSION: No acute findings. Electronically signed by: Neeraj Holley On 09/04/2019 17:27:55 PM
[2019-09-04 18:15] VITALS: BP 121/72
--- NOTE | 2019-09-05 17:53 | ECGEPIP ---
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
== END 2019-09-04 18:16 | disposition home or self-care (01) ==
LOC: M ED 15:12
DX: R07.89 Other chest pain (principal); E03.9 Hypothyroidism, unspecified; T38.1X5A Adverse effect of thyroid hormones and substitutes, initial encounter; X58.XXXA Exposure to other specified factors, initial encounter; Y92.89 Other specified places as the place of occurrence of the external cause; J45.909 Unspecified asthma, uncomplicated; Z79.899 Other long term (current) drug therapy; Z88.1 Allergy status to other antibiotic agents; Z88.2 Allergy status to sulfonamides; Z88.8 Allergy status to other drugs, medicaments and biological substances; Z91.048 Other nonmedicinal substance allergy status
CPT/HCPCS: 36415; 71045; 71275; 80048; 82550; 82553; 83036; 84439; 84443; 85025; 93005; 93041; 94760; 99284; Q9967

== ENCOUNTER → 2019-11-02 | Outpatient (REF) | payer OTHER ==
[~2019-11-02] MED LIST changes: +SYMB16INH INH
[2019-11-02 15:41] LABS: FREE T4 1.07 NG/DL (0.76-1.46); THYROID PEROXIDASE ANTIBODY > 1300.0 U/ML (<60.0)
== END ==
LOC: M LABDRAW1 11:19
PROVIDERS: ATTEND Nurse Practitioner Family
DX: E03.9 Hypothyroidism, unspecified (principal)

== ENCOUNTER → 2020-12-06 | Outpatient (REF) | payer OTHER | LOC: M LAB REF 16:24 | PROVIDERS: ATTEND Internal Medicine | DX: E03.9 Hypothyroidism, unspecified (principal) ==

== ENCOUNTER 2020-12-27 19:05 | Emergency (ER) | payer OTHER ==
[~2020-12-27] VITALS: Ht 165.1 cm; Wt 127.8 kg
[2020-12-27 20:11] LABS: BASO % 0.2 % (0.0-1.0); EOS # 0.1 10^3/uL (0.0-0.5); EOS % 1.1 % (0.0-3.0); HEMOGLOBIN 15.1 g/dl (12.0-15.5); LYMPH # 0.9 10^3/uL (1.5-5.0); LYMPH % 8.2 % (24.0-44.0); MEAN CORPUSCULAR HEMOGLOBIN 28.9 pg (27.0-33.0); MEAN CORPUSCULAR HGB CONC 32.1 g/dl (32.0-36.5); MEAN CORPUSCULAR VOLUME 89.9 fl (80.0-96.0); MONO # 0.8 10^3/uL (0.0-0.8); MONO % 7.1 % (2.0-8.0); NEUTROPHILS % 83.1 % (36.0-66.0); PLATELET COUNT, AUTOMATED 261 10^3/uL (150-450); RED BLOOD COUNT 5.23 10^6/uL (4.00-5.40); WHITE BLOOD COUNT 10.8 10^3/uL (4.0-10.0)
[2020-12-27 20:33] LABS: INR 0.94; PROTHROMBIN TIME 12.8 SECONDS (12.5-14.3)
[2020-12-27 20:36] LABS: D-DIMER QUANT 407.18 ng/ml (<500)
[2020-12-27 20:39] LABS: HCG, SERUM QUALITATIVE NEGATIVE (NEGATIVE)
[2020-12-27 20:43] LABS: ALBUMIN 3.8 GM/DL (3.2-5.2); ALT/SGPT 19 U/L (12-78); BILIRUBIN,DIRECT < 0.1 MG/DL (0.0-0.2); BILIRUBIN,TOTAL 0.3 MG/DL (0.2-1.0); BLOOD UREA NITROGEN 9 MG/DL (7-18); CALCIUM LEVEL 9.2 MG/DL (8.5-10.1); CARBON DIOXIDE LEVEL 26 MEQ/L (21-32); CHLORIDE LEVEL 109 MEQ/L (98-107); CK-MB VALUE MASS < 1.0 NG/ML (<3.6); CPK CREATINE PHOSPHOKINASE 72 U/L (26-192); GLOMERULAR FILTRATION RATE > 60.0 (>58); GLUCOSE, FASTING 112 MG/DL (70-100); LIPASE 185 U/L (73-393); MAGNESIUM LEVEL 2.1 MG/DL (1.8-2.4); MB/CK RELATIVE INDEX 1.39 (< OR =4); POTASSIUM SERUM 4.5 MEQ/L (3.5-5.1); SODIUM LEVEL 140 MEQ/L (136-145); TOTAL PROTEIN 7.8 GM/DL (6.4-8.2); TROPONIN I < 0.02 NG/ML (< 0.10)
--- NOTE | 2020-12-27 21:38 | REPVR ---
PROCEDURE INFORMATION: Exam: XR Chest Exam date and time: 12/27/2020 8:58 PM Age: 40 years old Clinical indication: Chest pain TECHNIQUE: Imaging protocol: XR of the chest Views: 1 view. COMPARISON: [facility] PORTABLE CHEST X-RAY 09/04/2019 3:43 PM FINDINGS: Lungs: Unremarkable. No consolidation. Pleural spaces: Unremarkable. No pleural effusion. No pneumothorax. Heart/Mediastinum: Unremarkable. No cardiomegaly. Bones/joints: Unremarkable. IMPRESSION: No acute findings. Electronically signed by: Santos Rinaldi On 12/27/2020 21:39:21 PM
[2020-12-27] MEDS ORDERED: ALPRAZolam 0.25 MG TAB PO ONE ×2 (22:10→23:45)
[2020-12-27] MEDS ORDERED: NS 1,000 ML IV ONE (22:50)
[2020-12-27 23:08] LABS: CK-MB VALUE MASS < 1.0 NG/ML (<3.6); CPK CREATINE PHOSPHOKINASE 63 U/L (26-192); MB/CK RELATIVE INDEX 1.59 (< OR =4); TROPONIN I < 0.02 NG/ML (< 0.10)
[2020-12-27 23:30] VITALS: BP 134/80
[2020-12-27] MEDS ORDERED: XANA0.5T PO (23:33)
--- NOTE | 2020-12-28 18:44 | ECGEPIP ---
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
--- NOTE | 2020-12-28 18:45 | ECGEPIP ---
[facility] - ED Test Date: 2020-12-27 Pat Name: MAYELA MORENO Department: Room: - Gender: Female Superintendent Plant Protection: NELSON : 1980 Requested By: RENO North Order Number: [id number] Reading MD: Rochelle Noyola Measurements Intervals [place] Rate: 119 P: 48 [place]: 170 QRS: 256 QRSD: 84 T: 29 QT: 322 QTc: 452 Interpretive Statements Sinus tachycardia Right superior axis deviation Inferior infarct , age undetermined Cannot rule out Anterior infarct , age undetermined decreased rate 12/27/20 Electronically Signed on 12-28-2020 18:45:24 EST by Rochelle Noyola
== END 2020-12-27 23:59 | disposition home or self-care (01) ==
LOC: M ED 19:05
DX: R07.89 Other chest pain (principal); R00.0 Tachycardia, unspecified; T50.995A Adverse effect of other drugs, medicaments and biological substances, initial encounter; X58.XXXA Exposure to other specified factors, initial encounter; Y92.89 Other specified places as the place of occurrence of the external cause; Z79.899 Other long term (current) drug therapy; Z88.1 Allergy status to other antibiotic agents; Z88.2 Allergy status to sulfonamides; Z88.8 Allergy status to other drugs, medicaments and biological substances; Z91.048 Other nonmedicinal substance allergy status; J30.2 Other seasonal allergic rhinitis

== ENCOUNTER → 2021-01-25 | Outpatient (REF) | payer OTHER ==
[~2021-01-25] MED LIST changes: +XANA0.5T PO
== END ==
LOC: M SFHCWAGY 13:25
PROVIDERS: ATTEND Obstetrics & Gynecology
DX: Z12.4 Encounter for screening for malignant neoplasm of cervix (principal)

== ENCOUNTER → 2021-11-20 | Outpatient (CLI) | payer OTHER | LOC: M ADAMS 15:28 | PROVIDERS: ATTEND Internal Medicine | DX: R10.9 Unspecified abdominal pain (principal) ==

== ENCOUNTER 2021-12-02 18:40 | Emergency (ER) | payer OTHER ==
[~2021-12-02] VITALS: Ht 167.6 cm; Wt 95.0 kg
[2021-12-02 20:39] LABS: BASO % 0.3 % (0.0-1.0); EOS % 0.4 % (0.0-3.0); HEMATOCRIT 39.4 % (36.0-47.0); HEMOGLOBIN 13.1 g/dl (12.0-15.5); LYMPH % 9.5 % (24.0-44.0); MEAN CORPUSCULAR HEMOGLOBIN 30.8 pg (27.0-33.0); MEAN CORPUSCULAR HGB CONC 33.2 g/dl (32.0-36.5); MEAN CORPUSCULAR VOLUME 92.5 fl (80.0-96.0); MONO # 0.5 10^3/uL (0.0-0.8); MONO % 4.7 % (2.0-8.0); NEUTROPHILS # 8.7 10^3/uL (1.5-8.5); NEUTROPHILS % 84.7 % (36.0-66.0); PLATELET COUNT, AUTOMATED 292 10^3/uL (150-450); RED BLOOD COUNT 4.26 10^6/uL (4.00-5.40); WHITE BLOOD COUNT 10.3 10^3/uL (4.0-10.0)
[2021-12-02 20:43] LABS: INR 1.03; PROTHROMBIN TIME 13.9 SECONDS (12.7-14.5)
[2021-12-02 20:44] LABS: PARTIAL THROMBOPLASTIN TIME 31.5 SECONDS (25.9-37.0)
[2021-12-02 20:51] LABS: CK-MB VALUE MASS < 1.0 NG/ML (<3.6); CPK CREATINE PHOSPHOKINASE 53 U/L (26-192); MB/CK RELATIVE INDEX 1.89 (< OR =4)
[2021-12-02] MEDS ORDERED: GI COCKTAIL 50ML BTL(HYOSCYAMINE/MAALOX/LIDOCAINE VISCOUS)(1:3:1) PO ONE (21:00)
[2021-12-02 21:05] LABS: ERYTHROCYTE SEDIMENTATION RATE 23 mm/hr (0-20)
[2021-12-02 21:28] LABS: ALBUMIN 3.2 GM/DL (3.2-5.2); ALT/SGPT 18 U/L (12-78); BILIRUBIN,DIRECT 0.1 MG/DL (0.0-0.2); BILIRUBIN,TOTAL 0.3 MG/DL (0.2-1.0); BLOOD UREA NITROGEN 5 MG/DL (7-18); C REACTIVE PROTEIN QUANTITATIV 0.86 MG/DL (0.00-0.30); CALCIUM LEVEL 8.2 MG/DL (8.5-10.1); CARBON DIOXIDE LEVEL 23 MEQ/L (21-32); CHLORIDE LEVEL 114 MEQ/L (98-107); CREATININE FOR GFR 0.65 MG/DL (0.55-1.30); GLOMERULAR FILTRATION RATE > 60.0 (>58); GLUCOSE, FASTING 98 MG/DL (70-100); LIPASE 104 U/L (73-393); NT-PRO BNP 67 PG/ML (<125); SODIUM LEVEL 142 MEQ/L (136-145); TOTAL PROTEIN 7.1 GM/DL (6.4-8.2)
[2021-12-02 21:58] LABS: HCG, SERUM QUALITATIVE NEGATIVE (NEGATIVE)
[2021-12-02 22:00] VITALS: BP 148/79
== END 2021-12-02 23:26 | disposition home or self-care (01) ==
LOC: M ED 18:40 → EDBD 18:40 → M ED 23:26
DX: I49.3 Ventricular premature depolarization (principal); Z88.1 Allergy status to other antibiotic agents; Z88.2 Allergy status to sulfonamides; Z88.8 Allergy status to other drugs, medicaments and biological substances; J30.2 Other seasonal allergic rhinitis; Z91.048 Other nonmedicinal substance allergy status

== ENCOUNTER → 2021-12-16 | Outpatient (REF) | payer OTHER ==
[2021-12-16 14:03] LABS: FREE T4 0.99 NG/DL (0.76-1.46); THYROID STIMULATING HORMONE 7.1 uIU/ML (0.358-3.740)
== END ==
LOC: M SFHCADAM 09:57
PROVIDERS: ATTEND Family Medicine
DX: R00.2 Palpitations (principal)

== ENCOUNTER → 2024-01-12 | Outpatient (CLI) | payer OTHER ==
[~2024-01-12] MED LIST changes: +ALBU6.7H6 INH; -PROV108A INH
[2024-01-12 15:22] LABS: BASO % 0.3 % (0.0-1.0); EOS # 0.2 10^3/uL (0.0-0.5); EOS % 2.9 % (0.0-3.0); HEMATOCRIT 43.9 % (36.0-47.0); HEMOGLOBIN 14.3 g/dl (12.0-15.5); LYMPH # 1.7 10^3/uL (1.5-5.0); LYMPH % 21.1 % (24.0-44.0); MEAN CORPUSCULAR HGB CONC 32.6 g/dl (32.0-36.5); MEAN CORPUSCULAR VOLUME 92.2 fl (80.0-96.0); MONO # 0.6 10^3/uL (0.0-0.8); MONO % 7.7 % (2.0-8.0); NEUTROPHILS # 5.4 10^3/uL (1.5-8.5); NEUTROPHILS % 67.7 % (36.0-66.0); PLATELET COUNT, AUTOMATED 312 10^3/uL (150-450); RED BLOOD COUNT 4.76 10^6/uL (4.00-5.40); WHITE BLOOD COUNT 7.9 10^3/uL (4.0-10.0)
[2024-01-12 15:45] LABS: LIPASE 43 U/L (12-53)
[2024-01-12 15:47] LABS: AMYLASE 49 U/L (30-118)
[2024-01-12 15:48] LABS: ALBUMIN 3.8 G/DL (3.2-5.2); ALKALINE PHOSPHATASE 62 U/L (46-116); ALT/SGPT 57 U/L (7.0-40); AST/SGOT 44 U/L (<34); BILIRUBIN,TOTAL 0.6 MG/DL (0.3-1.2); BLOOD UREA NITROGEN 8 MG/DL (9-23); CALCIUM LEVEL 9.4 MG/DL (8.5-10.1); CARBON DIOXIDE LEVEL 28 MMOL/L (20-31); CHLORIDE LEVEL 108 MMOL/L (98-107); CREATININE FOR GFR 0.78 MG/DL (0.55-1.30); GLOMERULAR FILTRATION RATE > 60.0 (>58); GLUCOSE, FASTING 109 MG/DL (60-100); POTASSIUM SERUM 4.8 MMOL/L (3.5-5.1); SODIUM LEVEL 141 MMOL/L (136-145); TOTAL PROTEIN 7.6 G/DL (5.7-8.2)
[2024-01-12 15:51] LABS: VITAMIN B12 LEVEL 366 PG/ML (211-911)
== END ==
LOC: M PLALAB 11:58
PROVIDERS: ATTEND Family Medicine
DX: R10.10 Upper abdominal pain, unspecified (principal)

== ENCOUNTER 2024-11-07 22:39 | Emergency (ER) | payer BC, OTHER ==
[~2024-11-07] VITALS: Ht 165.1 cm; Wt 133.6 kg
[2024-11-08] MEDS: NS (Normal Saline) 0.9% 1,000 ML IV ONE (00:38)
[2024-11-08] MEDS: ACETAMINOPHEN 325 MG TAB PO ONE (00:38)
[2024-11-08] MEDS: ASPIRIN 81MG CHEW TABLET PO ONE (00:41)
[2024-11-08 00:50] LABS: BASO % 0.3 % (0.0-1.0); EOS # 0.1 10^3/uL (0.0-0.5); EOS % 1.9 % (0.0-3.0); HEMATOCRIT 37.7 % (36.0-47.0); HEMOGLOBIN 12.7 g/dl (12.0-15.5); LYMPH # 0.8 10^3/uL (1.5-5.0); LYMPH % 13.9 % (24.0-44.0); MEAN CORPUSCULAR HGB CONC 33.7 g/dl (32.0-36.5); MONO # 0.9 10^3/uL (0.0-0.8); MONO % 14.6 % (2.0-8.0); PLATELET COUNT, AUTOMATED 257 10^3/uL (150-450); RED BLOOD COUNT 3.97 10^6/uL (4.00-5.40); WHITE BLOOD COUNT 5.8 10^3/uL (4.0-10.0)
[2024-11-08 01:10] LABS: INR 1.13; PROTHROMBIN TIME 14.8 SECONDS (12.5-14.5)
[2024-11-08 01:18] LABS: CK-MB VALUE MASS < 1.0 NG/ML (<3.6)
[2024-11-08 01:19] LABS: ALBUMIN 3.2 G/DL (3.2-5.2); ALKALINE PHOSPHATASE 54 U/L (35-104); ALT/SGPT 50 U/L (7.0-40); AST/SGOT 54 U/L (<34); BILIRUBIN,DIRECT 0.1 MG/DL (<0.4); BILIRUBIN,TOTAL 0.4 MG/DL (0.3-1.2); BLOOD UREA NITROGEN 7 MG/DL (9-23); CALCIUM LEVEL 8.5 MG/DL (8.5-10.1); CARBON DIOXIDE LEVEL 27 MMOL/L (20-31); CHLORIDE LEVEL 109 MMOL/L (98-107); CPK CREATINE PHOSPHOKINASE 102 U/L (34-145); CREATININE FOR GFR 0.84 MG/DL (0.55-1.30); GLOMERULAR FILTRATION RATE > 60.0 (>58); GLUCOSE, FASTING 120 MG/DL (60-100); MB/CK RELATIVE INDEX 0.98 (< OR =4); POTASSIUM SERUM 4.2 MMOL/L (3.5-5.1); SODIUM LEVEL 144 MMOL/L (136-145); TOTAL PROTEIN 7.2 G/DL (5.7-8.2)
[2024-11-08] MEDS ORDERED: NIRM1TAB14 PO (01:45)
[2024-11-08 02:00] VITALS: BP 160/76; O2SAT 98
[2024-11-08 02:06] VITALS: TEMP 98.1
[2024-11-08 02:07] LABS: CK-MB VALUE MASS < 1.0 NG/ML (<3.6)
[2024-11-08 02:08] LABS: CPK CREATINE PHOSPHOKINASE 93 U/L (34-145); MB/CK RELATIVE INDEX 1.07 (< OR =4)
== END 2024-11-08 02:08 | disposition home or self-care (01) ==
LOC: M ED 22:39 → EDBD 22:39 → M ED 11-08 02:08
DX: R00.0 Tachycardia, unspecified (principal); U07.1 COVID-19; R50.9 Fever, unspecified; J45.909 Unspecified asthma, uncomplicated; I10 Essential (primary) hypertension; F41.9 Anxiety disorder, unspecified; Z82.49 Family history of ischemic heart disease and other diseases of the circulatory system; Z88.2 Allergy status to sulfonamides; Z88.8 Allergy status to other drugs, medicaments and biological substances; Z91.09 Other allergy status, other than to drugs and biological substances; Z79.51 Long term (current) use of inhaled steroids; Z79.899 Other long term (current) drug therapy

== ENCOUNTER 2024-11-15 00:33 | Emergency (ER) | payer BC ==
[~2024-11-15] VITALS: Ht 165.1 cm; Wt 131.1 kg
[~2024-11-15 00:33] MED LIST changes: +NIRM1TAB14 PO
[2024-11-15 00:35] VITALS: TEMP 99
[2024-11-15] MEDS ORDERED: CETI10CH PO (00:40)
[2024-11-15 02:27] LABS: BASO % 0.2 % (0.0-1.0); EOS # 0.2 10^3/uL (0.0-0.5); EOS % 2.4 % (0.0-3.0); HEMATOCRIT 40.9 % (36.0-47.0); HEMOGLOBIN 13.6 g/dl (12.0-15.5); LYMPH # 1.9 10^3/uL (1.5-5.0); LYMPH % 20.8 % (24.0-44.0); MEAN CORPUSCULAR HEMOGLOBIN 31.4 pg (27.0-33.0); MEAN CORPUSCULAR HGB CONC 33.3 g/dl (32.0-36.5); MEAN CORPUSCULAR VOLUME 94.5 fl (80.0-96.0); MONO # 0.6 10^3/uL (0.0-0.8); MONO % 6.4 % (2.0-8.0); NEUTROPHILS # 6.5 10^3/uL (1.5-8.5); PLATELET COUNT, AUTOMATED 249 10^3/uL (150-450); RED BLOOD COUNT 4.33 10^6/uL (4.00-5.40); WHITE BLOOD COUNT 9.2 10^3/uL (4.0-10.0)
[2024-11-15 02:55] LABS: ALBUMIN 3.5 G/DL (3.2-5.2); ALKALINE PHOSPHATASE 51 U/L (35-104); ALT/SGPT 35 U/L (7.0-40); AST/SGOT 27 U/L (<34); BILIRUBIN,DIRECT 0.1 MG/DL (<0.4); BILIRUBIN,TOTAL 0.5 MG/DL (0.3-1.2); BLOOD UREA NITROGEN 8 MG/DL (9-23); CALCIUM LEVEL 8.7 MG/DL (8.5-10.1); CARBON DIOXIDE LEVEL 27 MMOL/L (20-31); CHLORIDE LEVEL 105 MMOL/L (98-107); CREATININE FOR GFR 0.75 MG/DL (0.55-1.30); GLOMERULAR FILTRATION RATE > 60.0 (>58); GLUCOSE, FASTING 113 MG/DL (60-100); POTASSIUM SERUM 4.2 MMOL/L (3.5-5.1); SODIUM LEVEL 141 MMOL/L (136-145); TOTAL PROTEIN 7.6 G/DL (5.7-8.2)
[2024-11-15] MEDS ORDERED: ISOVUE-370 76% 100ML VIAL As Ordered ONE (03:23)
[2024-11-15 03:35] VITALS: BP 134/72; O2SAT 97
[2024-11-15] MEDS: NS (Normal Saline) 0.9% 1,000 ML IV ONE (03:36)
== END 2024-11-15 05:30 | disposition home or self-care (01) ==
LOC: M ED 00:33
DX: U07.1 COVID-19 (principal); E86.0 Dehydration; R00.0 Tachycardia, unspecified; I25.2 Old myocardial infarction; J45.909 Unspecified asthma, uncomplicated; Z88.2 Allergy status to sulfonamides; Z88.8 Allergy status to other drugs, medicaments and biological substances; Z91.09 Other allergy status, other than to drugs and biological substances; Z79.51 Long term (current) use of inhaled steroids; Z79.899 Other long term (current) drug therapy
CPT/HCPCS: 71045; 71275; 80048; 80076; 85025; 93005; 93041; 94760; 96360; 96361; 99284; Q9967

== ENCOUNTER → 2025-07-06 | Outpatient (CLI) | payer BC ==
[~2025-07-06] MED LIST changes: +CETI10CH PO; -IBUP-1022 PO; +IBUP600T42 PO; -NIRM1TAB14 PO; +NIRM1TAB16 PO
== END ==
LOC: M WHC 12:39
PROVIDERS: ATTEND Physician Assistant Medical
DX: R10.2 Pelvic and perineal pain (principal)